=== PATIENT | female | born 1970 | race Caucasian/White ===

== ENCOUNTER → 2016-12-29 | Outpatient (CLI) | payer OTHER ==
--- NOTE | 2016-12-29 10:22 | REP ---
RIGHT UPPER QUADRANT SONOGRAPHY: HISTORY: Hepatitis C. No comparison imaging. FINDINGS: Scanning through right upper quadrant of the abdomen demonstrates a 1.6 cm mobile shadowing gallstone in the gallbladder. There are foci of increased echogenicity in the gallbladder wall, which produce comet-tail artifact consistent with focal adenomyomatosis. No wall thickening or pericholecystic fluid is seen. Common bile duct is normal measuring 0.4 cm in greatest diameter. There is no evidence of ascites or abnormal venous collateral flow. There are two small hyperechoic nodules anteriorly in the left lobe of the liver. These measure 0.9 x 0.4 x 0.4 cm and 1.0 x 0.6 x 1.2 cm. They are compatible with benign hemangiomata. No other focal liver lesion is seen. No pancreatic abnormality is seen. No ascites or right renal abnormality is seen. Right kidney measures 9.7 x 4.9 x 3.1 cm. IMPRESSION: Two small hypoechoic nodules in the left lobe of the liver. Most compatible with hemangiomata. The largest of these measures 1.2 cm in greatest diameter. Cholelithiasis. Signed by Vargas Henriquez MD 12/29/2016 02:54 P
[2016-12-29 10:31] LABS: ALBUMIN 4.2 GM/DL (3.2-5.2); ALKALINE PHOSPHATASE 52 U/L (45-117); ALT/SGPT 28 U/L (12-78); AST/SGOT 45 U/L (15-37); BILIRUBIN,DIRECT < 0.1 MG/DL (0.0-0.2); BILIRUBIN,TOTAL 0.3 MG/DL (0.2-1.0); TOTAL PROTEIN 8.4 GM/DL (6.4-8.2)
[2016-12-31 14:26] LABS: HEPATITIS C QUANTITATION 2599740 IU/mL (.)
[2017-01-01 10:15] LABS: ALT 24 IU/L (0-40); GGT 58 IU/L (0-60); HAPTOGLOBIN 137 mg/dL (34-200); NECROINFLAM SCORE 0.07 (0.00-0.17); NECROINFLAMM GRADE A0-No activity (.); TOTAL BILIRUBIN 0.1 mg/dL (0.0-1.2)
== END ==
LOC: M LAB 08:12
PROVIDERS: ATTEND Hospitalist
DX: B18.2 Chronic viral hepatitis C (principal); K76.89 Other specified diseases of liver

== ENCOUNTER → 2017-01-17 | Outpatient (REF) | payer OTHER | LOC: M LAB REF 09:34 | PROVIDERS: ATTEND Physician Assistant | DX: R30.0 Dysuria (principal) ==

== ENCOUNTER → 2017-01-25 | Outpatient (CLI) | payer OTHER ==
--- NOTE | 2017-02-02 08:08 | REPMRS ---
Patient History The patient states she has not had a clinical breast exam in over a year. No known family history of cancer. Digital Woman Screen Mammo: January 25, 2017 - Exam #: [id number] Bilateral CC and MLO view(s) were taken. Technologist: Che Prescott, Technologist Prior study comparison: 2013, digital bilateral screening mammo. FINDINGS: The breast tissue is heterogeneously dense. This may lower the sensitivity of mammography. There is a moderate amount of heterogeneously dense fibroglandular tissue which is fairly symmetric. There is no interval development of dominant mass, architectural distortion, or clustered microcalcification typical of malignancy. There has been no change in the appearance of the mammogram from the prior studies. ASSESSMENT: BI-RADS/ACR category 1 mammogram. Negative. Recommendation Routine screening mammogram of both breasts in 1 year (for women over age 40). This mammogram was interpreted with the aid of an FDA-approved computer-aided dectection system. Electronically Signed By: Bart Henriquez MD 02/02/17 0808
== END ==
LOC: M WHC 14:33
DX: Z12.31 Encounter for screening mammogram for malignant neoplasm of breast (principal)

== ENCOUNTER → 2017-02-11 | Outpatient (REF) | payer OTHER ==
[~2017-02-11] MED LIST: MACR100C3 PO
== END ==
LOC: M LAB REF 16:49
PROVIDERS: ATTEND Physician Assistant
DX: N39.9 Disorder of urinary system, unspecified (principal)

== ENCOUNTER → 2017-02-16 | Outpatient (REF) | payer OTHER | LOC: M SFHCPLAZ 12:05 | PROVIDERS: ATTEND Internal Medicine Infectious Disease | DX: B18.2 Chronic viral hepatitis C (principal) ==

== ENCOUNTER → 2017-02-16 | Day surgery (SDC) | payer OTHER ==
[~2017-02-16] VITALS: Ht 167.6 cm; Wt 56.7 kg
[~2017-02-16] MED LIST changes: +BUPIVACAINE/EPIN 0.25% 30 ML VIAL As Ordered ONE; +LIDOCAINE 2% INJ 100 MG/5 ML SDV (FOR ANES.) As Ordered ONE; +LR 1,000 ML IV ONE; +LR 1,000 ML IV SCH; +MIDAZOLAM INJ 2 MG/2 ML VIAL (J2250) As Ordered ONE; +PROPOFOL 200 MG/20 ML VIAL As Ordered ONE; +fentaNYL 100 MCG/2 ML INJECTION (J3010) As Ordered ONE
[2017-02-16 07:05] LABS: CONTROL LINE UCG INT CTR LINE PRESENT
[2017-02-16 08:45] VITALS: BP 110/57
--- NOTE | 2017-03-01 05:38 | RO ---
DATE OF PROCEDURE: 02/16/2017 PREOPERATIVE DIAGNOSIS: Large inclusion cyst right posterior ear/scalp. POSTOPERATIVE DIAGNOSIS: Large inclusion cyst right posterior ear/scalp. PROCEDURE: Excision of subcutaneous mass posterior to the right ear/scalp. SURGEON: Red Roque MD VIDEO COORDINATOR: ANESTHESIA: Local lidocaine mixed with epinephrine. DESCRIPTION OF PROCEDURE: The patient was brought to the operating room and was given IV sedation. She was prepped and draped in the usual sterile fashion. Local lidocaine mixed with epinephrine was infiltrated into the skin, subcutaneous tissue surrounding this large, what appeared to be an inclusion cyst. However, it was obvious that it was attached to the deep subcutaneous tissue/galea. An elliptical incision was made over the top of this lesion and getting down to the wall of this, once getting onto the wall, this 3 x 2 cm, almost 4 x 2 cm lesion was able to be mobilized off surrounding structures using mostly blunt dissection. Once again, this went down to fascia/galea and once I was able to take this off good hemostasis was achieved with this minimal dissection. There was some minimal oozing from the skin edges that was controlled with electrocautery and the dermis was brought together with #3-0 Vicry. #4-0 Vicryl was used to approximate the skin. Steri-Strips and dry sterile dressing was applied. The patient was awakened from her sedation, brought to the recovery room awake, alert and hemodynamically stable. Sponge and needle counts correct times two.
== END | disposition home or self-care (01) ==
LOC: M SDC 06:14
PROVIDERS: ATTEND Surgery
DX: L72.3 Sebaceous cyst (principal); R56.9 Unspecified convulsions; N95.8 Other specified menopausal and perimenopausal disorders; B18.2 Chronic viral hepatitis C; F17.200 Nicotine dependence, unspecified, uncomplicated; Z86.59 Personal history of other mental and behavioral disorders; Z87.42 Personal history of other diseases of the female genital tract; Z96.641 Presence of right artificial hip joint; Z87.440 Personal history of urinary (tract) infections

== ENCOUNTER → 2017-03-25 | Outpatient (CLI) | payer OTHER ==
[~2017-03-25] MED LIST changes: -BUPIVACAINE/EPIN 0.25% 30 ML VIAL As Ordered ONE; -LIDOCAINE 2% INJ 100 MG/5 ML SDV (FOR ANES.) As Ordered ONE; -LR 1,000 ML IV ONE; -LR 1,000 ML IV SCH; -MACR100C3 PO; +MACR100C43 PO; -MIDAZOLAM INJ 2 MG/2 ML VIAL (J2250) As Ordered ONE; -PROPOFOL 200 MG/20 ML VIAL As Ordered ONE; -fentaNYL 100 MCG/2 ML INJECTION (J3010) As Ordered ONE
[2017-03-25 13:48] LABS: ALBUMIN 4.1 GM/DL (3.2-5.2); ALBUMIN/GLOBULIN RATIO 0.91 (1.00-1.93); ALKALINE PHOSPHATASE 81 U/L (45-117); ALT/SGPT 45 U/L (12-78); AST/SGOT 74 U/L (15-37); BILIRUBIN,DIRECT < 0.1 MG/DL (0.0-0.2); BILIRUBIN,TOTAL 0.4 MG/DL (0.2-1.0); TOTAL PROTEIN 8.6 GM/DL (6.4-8.2)
[2017-03-26 10:59] LABS: HEPATITIS B SURFACE ANTIBODY NEGATIVE (POSITIVE)
== END ==
LOC: M LAB 12:41
PROVIDERS: ATTEND Internal Medicine Infectious Disease
DX: B18.2 Chronic viral hepatitis C (principal)

== ENCOUNTER → 2019-10-03 | Outpatient (CLI) | payer OTHER ==
[2019-10-03 16:53] LABS: FREE T4 0.62 NG/DL (0.76-1.46); THYROID STIMULATING HORMONE 0.881 uIU/ML (0.358-3.740)
== END ==
LOC: M LAB 15:06
PROVIDERS: ATTEND Internal Medicine Gastroenterology
DX: K58.0 Irritable bowel syndrome with diarrhea (principal)

== ENCOUNTER → 2019-12-12 | Outpatient (REF) | payer OTHER ==
[~2019-12-12] MED LIST changes: +ACET-907 PO
[2019-12-13 14:32] LABS: CLOSTRIDIUM DIFFICILE PCR NEGATIVE (NEGATIVE)
== END ==
LOC: M LAB REF 11:48
PROVIDERS: ATTEND Internal Medicine Gastroenterology
DX: K58.0 Irritable bowel syndrome with diarrhea (principal)

== ENCOUNTER → 2020-02-28 | Outpatient (CLI) | payer OTHER ==
[2020-02-28 12:20] LABS: BASO # 0.1 10^3/uL (0.0-0.2); BASO % 0.7 % (0.0-1.0); EOS # 0.1 10^3/uL (0.0-0.5); EOS % 1.2 % (0.0-3.0); HEMATOCRIT 40.3 % (36.0-47.0); HEMOGLOBIN 13.6 g/dl (12.0-15.5); LYMPH # 1.6 10^3/uL (1.5-5.0); LYMPH % 18.3 % (24.0-44.0); MEAN CORPUSCULAR HEMOGLOBIN 32.5 pg (27.0-33.0); MEAN CORPUSCULAR HGB CONC 33.7 g/dl (32.0-36.5); MEAN CORPUSCULAR VOLUME 96.4 fl (80.0-96.0); MONO # 0.6 10^3/uL (0.0-0.8); MONO % 7.1 % (0.0-5.0); NEUTROPHILS # 6.3 10^3/uL (1.5-8.5); NEUTROPHILS % 72.1 % (36.0-66.0); PLATELET COUNT, AUTOMATED 263 10^3/uL (150-450); RED BLOOD COUNT 4.18 10^6/uL (4.00-5.40); WHITE BLOOD COUNT 8.7 10^3/uL (4.0-10.0)
[2020-02-28 12:22] LABS: APPEARANCE, URINE CLOUDY (CLEAR); BACTERIA, URINE AUTO 1+ (NEGATIVE); BILIRUBIN, URINE AUTO NEGATIVE (NEGATIVE); BLOOD, URINE BLOOD 1+ (NEGATIVE); COLOR, URINE YELLOW (YELLOW); GLUCOSE, URINE (UA) AUTO NEGATIVE (NEGATIVE); KETONE, URINE AUTO NEGATIVE (NEGATIVE); LEUKOCYTE ESTERASE, URINE AUTO NEGATIVE (NEGATIVE); NITRITE, URINE AUTO NEGATIVE (NEGATIVE); PROTEIN, URINE AUTO NEGATIVE (NEGATIVE); RBC, URINE AUTO 2 /HPF (0-3); SPECIFIC GRAVITY URINE AUTO 1.017 (1.002-1.035); SQUAMOUS EPITHELIAL CELL UR AU 16 /HPF (0-6); UROBILINOGEN, URINE AUTO 0.2 mg/dL (0.0-2.0); WBC, URINE AUTO 1 /HPF (0-3)
[2020-02-28 12:54] LABS: HEMOGLOBIN A1c 5.3 %
[2020-02-28 13:05] LABS: ALBUMIN 3.7 GM/DL (3.2-5.2); ALT/SGPT 19 U/L (12-78); BILIRUBIN,TOTAL 0.3 MG/DL (0.2-1.0); BLOOD UREA NITROGEN 16 MG/DL (7-18); CARBON DIOXIDE LEVEL 25 MEQ/L (21-32); CHLORIDE LEVEL 107 MEQ/L (98-107); CHOLESTEROL LEVEL 189 MG/DL (<200); CHOLESTEROL RISK RATIO 3.048 (<5); CREATININE FOR GFR 0.71 MG/DL (0.55-1.30); FREE T4 0.78 NG/DL (0.76-1.46); GLOMERULAR FILTRATION RATE > 60.0 (>51); GLUCOSE, FASTING 86 MG/DL (70-100); HDL CHOLESTEROL 62 MG/DL (>40); LDL CHOLESTEROL 69 MG/DL (<100); NON-HDL-C 127 MG/DL; POTASSIUM SERUM 4.5 MEQ/L (3.5-5.1); SODIUM LEVEL 140 MEQ/L (136-145); TOTAL 25(OH) VITAMIN D 21.8 NG/ML (30.0-100.0); TOTAL PROTEIN 7.6 GM/DL (6.4-8.2); TRIGLYCERIDES LEVEL 290 MG/DL (<150)
== END ==
LOC: M LAB 11:12
PROVIDERS: ATTEND Nurse Practitioner Family
DX: D22.60 Melanocytic nevi of unspecified upper limb, including shoulder (principal); R22.1 Localized swelling, mass and lump, neck; Z13.9 Encounter for screening, unspecified; F17.200 Nicotine dependence, unspecified, uncomplicated

== ENCOUNTER → 2020-04-09 | Outpatient (REF) | payer OTHER ==
[2020-04-09 19:39] LABS: APPEARANCE, URINE TURBID (CLEAR); BACTERIA, URINE AUTO NEGATIVE (NEGATIVE); BILIRUBIN, URINE AUTO NEGATIVE (NEGATIVE); BLOOD, URINE BLOOD 1+ (NEGATIVE); COLOR, URINE AMBER (YELLOW); GLUCOSE, URINE (UA) AUTO NEGATIVE (NEGATIVE); KETONE, URINE AUTO NEGATIVE (NEGATIVE); LEUKOCYTE ESTERASE, URINE AUTO NEGATIVE (NEGATIVE); MUCUS, URINE SMALL (NEGATIVE); NITRITE, URINE AUTO NEGATIVE (NEGATIVE); PROTEIN, URINE AUTO NEGATIVE (NEGATIVE); RBC, URINE AUTO 0 /HPF (0-3); SPECIFIC GRAVITY URINE AUTO 1.017 (1.002-1.035); SQUAMOUS EPITHELIAL CELL UR AU 4 /HPF (0-6); UROBILINOGEN, URINE AUTO 0.2 mg/dL (0.0-2.0); WBC, URINE AUTO 5 /HPF (0-3)
== END ==
LOC: M LAB REF 17:15
PROVIDERS: ATTEND Nurse Practitioner Family
DX: N39.0 Urinary tract infection, site not specified (principal)

== ENCOUNTER → 2020-04-15 | Outpatient (CLI) | payer OTHER ==
--- NOTE | 2020-06-07 13:42 | REP ---
THYROID ULTRASOUND Report is delayed due to a malware attack on this facility. THYROID RIGHT LOBE: There is a solid mass at the mid pole of the right thyroid lobe extending into both upper and lower poles measuring 5.5 x 3.5 x 2.9 cm. Including this mass, the right lobe is enlarged measuring 6.0 x 3.8 x 3.2 cm. THYROID LEFT LOBE: Normal in size measuring 3.9 x 0.9 x 0.8 cm. There is a tiny 0.3 x 0.2 mm heterogeneous nodule at the upper pole of the left lobe. The left lobe is otherwise homogeneous. This is likely a tiny cystadenoma. There is no hyperemia in either the right or the left lobes of the thyroid. IMPRESSION: There is a large 5.5 cm mass in the thyroid right lobe. I would recommend ultrasound-guided biopsy of this mass. Additionally, radionuclide thyroid ultrasound might be considered for further evaluation. MTDD
== END ==
LOC: M WHC 07:38
PROVIDERS: ATTEND Nurse Practitioner Family
DX: E04.1 Nontoxic single thyroid nodule (principal)

== ENCOUNTER → 2020-05-23 | Outpatient (CLI) | payer OTHER | LOC: M LABSMTC 12:23 | PROVIDERS: ATTEND Anesthesiology | DX: Z01.812 Encounter for preprocedural laboratory examination (principal); Z20.828 Contact with and (suspected) exposure to other viral communicable diseases | CPT/HCPCS: C9803; U0003 ==

== ENCOUNTER 2020-05-28 13:25 | Day surgery (SDC) | payer OTHER ==
[~2020-05-28] VITALS: Ht 167.6 cm; Wt 60.4 kg
[~2020-05-28 13:25] MED LIST changes: +NS 1,000 ML IV ONE
[2020-05-28] MEDS ORDERED: LIDOCAINE 2% 100MG/5ML SDV (FOR ANES.) As Ordered ONE (15:02)
[2020-05-28] MEDS ORDERED: propofoL 200 MG/20 ML VIAL As Ordered ONE ×2 (15:02→15:17)
[2020-05-28 15:45] VITALS: BP 141/88
--- NOTE | 2020-05-29 11:39 | ROOR ---
Patient Name: Yodit Chanel Procedure Date: 05/28/2020 3:00 PM Date of : 1970 Age: 50 Room: [facility] Gender: Female Note Status: Finalized Procedure: Colonoscopy Indications: Change in bowel habits, Diarrhea Providers: Cliff ALBRIGHT MD Referring MD: Josias GUERRERO MD Requesting Provider: Medicines: Monitored Anesthesia Care Complications: No immediate complications. Procedure: Pre-Anesthesia Assessment: - The heart rate, respiratory rate, oxygen saturations, blood pressure, adequacy of pulmonary ventilation, and response to care were monitored throughout the procedure. The Colonoscope was introduced through the anus and advanced to 10 cm into the ileum. The colonoscopy was performed without difficulty. The patient tolerated the procedure well. The quality of the bowel preparation was good. Findings: The perianal and digital rectal examinations were normal. Four sessile polyps were found in the descending colon and splenic flexure. The polyps were 4 to 5 mm in size. These polyps were removed with a cold snare. Resection and retrieval were complete. Small Internal Hemorrhoids. The exam was otherwise without abnormality on direct and retroflexion views. Biopsies for histology were taken with a cold forceps from the entire colon for evaluation of microscopic colitis. The terminal ileum appeared normal. Impression: - The terminal ileum appeared normal. - Four 4 to 5 mm polyps in the descending colon and at the splenic flexure, removed with a cold snare. Resected and retrieved. - Small Internal Hemorrhoids. - The colon was otherwise normal on direct and retroflexion views. - Biopsies were taken with a cold forceps from the entire colon for evaluation of microscopic colitis. Recommendation: - Telephone endoscopist for pathology results in 2 weeks. - Repeat colonoscopy in 3 - 5 years for surveillance. Cliff Albright MD Cliff ALBRIGHT MD 05/28/2020 3:28:45 PM Electronically signed by Cliff ALBRIGHT MD Number of Addenda: 0 Note Initiated On: 05/28/2020 3:00 PM Estimated Blood Loss: Estimated blood loss: none.
== END 2020-05-28 15:57 | disposition home or self-care (01) ==
LOC: M OPP 13:25
PROVIDERS: ATTEND Internal Medicine Gastroenterology
DX: D12.3 Benign neoplasm of transverse colon (principal); D12.4 Benign neoplasm of descending colon; K64.8 Other hemorrhoids; R19.4 Change in bowel habit; R19.7 Diarrhea, unspecified; F17.210 Nicotine dependence, cigarettes, uncomplicated; Z86.19 Personal history of other infectious and parasitic diseases

== ENCOUNTER → 2020-06-03 | Outpatient (REF) | payer OTHER ==
[~2020-06-03] MED LIST changes: -NS 1,000 ML IV ONE
== END ==
LOC: M LAB REF 19:01
PROVIDERS: ATTEND Internal Medicine Endocrinology, Diabetes & Metabolism
DX: E04.1 Nontoxic single thyroid nodule (principal)

== ENCOUNTER 2020-10-01 22:57 | Emergency (ER) | payer OTHER ==
[~2020-10-01] VITALS: Ht 167.6 cm; Wt 65.9 kg
--- OUTSIDE RECORDS SUMMARY | 2020-10-01 23:04 | CCD ---
Author Author [facility] Organization [facility] Address Unknown Phone Unavailable Care Team Providers Care Entry Level Business Analyst Name Role Phone Alber, A Pamela MARINE STEWARD Unavailable Unavailable Alber, A Pamela MARINE STEWARD Unavailable Unavailable Alber, A Pamela MARINE STEWARD Unavailable Unavailable Alber, A Pamela MARINE STEWARD Unavailable Unavailable Friendship, A Pamela MARINE STEWARD Unavailable Unavailable Friendship, A Pamela MARINE STEWARD Unavailable Unavailable Friendship, A Pamela MARINE STEWARD Unavailable Unavailable Alber, A Pamela MARINE STEWARD Unavailable Unavailable Alber, A Pamela MARINE STEWARD Unavailable Unavailable Alber, A Pamela MARINE STEWARD Unavailable Unavailable Alber, A Pamela MARINE STEWARD Unavailable Unavailable Friendship, A Pamela MARINE STEWARD Unavailable Unavailable Alber, A Pamela MARINE STEWARD Unavailable Unavailable Alber, A Pamela MARINE STEWARD Unavailable Unavailable Alber, A Pamela MARINE STEWARD Unavailable Unavailable Alber, A Pamela MARINE STEWARD Unavailable Unavailable Alber, A Pamela MARINE STEWARD Unavailable Unavailable Alber, A Pamela MARINE STEWARD Unavailable Unavailable Alber, A Pamela MARINE STEWARD Unavailable Unavailable Alber, A Pamela MARINE STEWARD Unavailable Unavailable Alber, A Pmaela MARINE STEWARD Unavailable Unavailable Alber, A Pamela MARINE STEWARD Unavailable Unavailable Alber, A Pamela MARINE STEWARD Unavailable Unavailable Alber, A Pamela MARINE STEWARD Unavailable Unavailable Alber, A Pamela MARINE STEWARD Unavailable Unavailable Alber, A Pamela MARINE STEWARD Unavailable Unavailable Alber, A Pamela MARINE STEWARD Unavailable Unavailable Alber, A Pamela MARINE STEWARD Unavailable Unavailable Alber, A Pamela MARINE STEWARD Unavailable Unavailable Alber, A Pamela MARINE STEWARD Unavailable Unavailable Alber, A Pamela MARINE STEWARD Unavailable Unavailable Friendship, A Pamela MARINE STEWARD Unavailable Unavailable Friendship, A Pamela MARINE STEWARD Unavailable Unavailable Friendship, A Pamela MARINE STEWARD Unavailable Unavailable Friendship, A Pamela MARINE STEWARD Unavailable Unavailable Friendship, A Pamela MARINE STEWARD Unavailable Unavailable Friendship, A Pamela MARINE STEWARD Unavailable Unavailable Friendship, A Pamela MARINE STEWARD Unavailable Unavailable Friendship, A Pamela MARINE STEWARD Unavailable Unavailable Friendship, A Pamela MARINE STEWARD Unavailable Unavailable Friendship, A Pamela MARINE STEWARD Unavailable Unavailable Friendship, A Pamela MARINE STEWARD Unavailable Unavailable Friendship, A Pamela MARINE STEWARD Unavailable Unavailable Friendship, A Pamela MARINE STEWARD Unavailable Unavailable Friendship, A Pamela MARINE STEWARD Unavailable Unavailable Friendship, A Pamela MARINE STEWARD Unavailable Unavailable Friendship, A Pamela MARINE STEWARD Unavailable Unavailable Friendship, A Pamela MARINE STEWARD Unavailable Unavailable Friendship, A Pamela MARINE STEWARD Unavailable Unavailable Friendship, A Pamela MARINE STEWARD Unavailable Unavailable Friendship, A Pamela MARINE STEWARD Unavailable Unavailable Friendship, A Pamela MARINE STEWARD Unavailable Unavailable Friendship, A Pamela MARINE STEWARD Unavailable Unavailable Friendship, A Pamela MARINE STEWARD Unavailable Unavailable Fish, Audrey Galicia MD Unavailable Unavailable Fish, Audrey Galicia MD Unavailable Unavailable Salinas, Audrey Galicia MD Unavailable Unavailable Salinas, Audrey Galicia MD Unavailable Unavailable Audrey Niño MD Unavailable Unavailable Audrey Niño MD Unavailable Unavailable Audrey Niño MD Unavailable Unavailable Salinas, Audrey Galicia MD Unavailable Unavailable Salinas, Audrey Galicia MD Unavailable Unavailable Audrey Niño MD Unavailable Unavailable Audrey Niño MD Unavailable Unavailable Audrey Niño MD Unavailable Unavailable Audrey Niño MD Unavailable Unavailable Audrey Niño MD Unavailable Unavailable Audrey Niño MD Unavailable Unavailable Audrey Niño MD Unavailable Unavailable FishAudrey MD Unavailable Unavailable FishAudrey MD Unavailable Unavailable Audrey Niño MD Unavailable Unavailable Audrey Niño MD Unavailable Unavailable Audrey Niño MD Unavailable Unavailable Audrey Niño MD Unavailable Unavailable Audrey Niño MD Unavailable Unavailable Audrey Niño MD Unavailable Unavailable Audrey Niño MD Unavailable Unavailable Audrey Niño MD Unavailable Unavailable Audrey Niño MD Unavailable Unavailable Audrey Niño MD Unavailable Unavailable Audrey Niño MD Unavailable Unavailable Audrey Niño MD Unavailable Unavailable Audrey Niño MD Unavailable Unavailable FishAudrey MD Unavailable Unavailable FishAudrey MD Unavailable Unavailable Fish, B Frida ESPINOZA Unavailable Unavailable Fish, B Frida ESPINOZA Unavailable Unavailable Fish, B Frida ESPINOZA Unavailable Unavailable Fish, B Frida ESPINOZA Unavailable Unavailable Fish, B Frida ESPINOZA Unavailable Unavailable Fish, B Frida ESPINOZA Unavailable Unavailable Fish, B Frida ESPINOZA Unavailable Unavailable Fish, B Frida ESPINOZA Unavailable Unavailable Fish, B Frida ESPINOZA Unavailable Unavailable Fish, B Frida ESPINOZA Unavailable Unavailable Fish, B Frida ESPINOZA Unavailable Unavailable Fish, B Frida ESPINOZA Unavailable Unavailable Fish, B Frida ESPINOZA Unavailable Unavailable Fish, B Frida ESPINOZA Unavailable Unavailable Fish, B Frida ESPINOZA Unavailable Unavailable Fish, B Frida ESPINOZA Unavailable Unavailable Fish, B Frida ESPINOZA Unavailable Unavailable Fish, B Frida ESPINOZA Unavailable Unavailable Fish, B Frida ESPINOZA Unavailable Unavailable Fish, B Frida ESPINOZA Unavailable Unavailable Fish, B Frida ESPINOZA Unavailable Unavailable Fish, B Frida ESPINOZA Unavailable Unavailable Fish, B Frida ESPINOZA Unavailable Unavailable Fish, B Frida ESPINOZA Unavailable Unavailable Fish, B Frida ESPINOZA Unavailable Unavailable Fish, B Frida ESPINOZA Unavailable Unavailable Fish, B Frida ESPINOZA Unavailable Unavailable Fish, B Frida ESPINOZA Unavailable Unavailable Fish, B Frida ESPINOZA Unavailable Unavailable Fish, B Frida ESPINOZA Unavailable Unavailable Fish, B Frida ESPINOZA Unavailable Unavailable COOK, B IRENE BOAT RIGGER Unavailable Unavailable COOK, B IRENE BOAT RIGGER Unavailable Unavailable COOK, B IRENE BOAT RIGGER Unavailable Unavailable COOK, B IRENE BOAT RIGGER Unavailable Unavailable COOK, B IRENE BOAT RIGGER Unavailable Unavailable COOK, B IRENE BOAT RIGGER Unavailable Unavailable COOK, B IRENE BOAT RIGGER Unavailable Unavailable COOK, B IRENE BOAT RIGGER Unavailable Unavailable COOK, B IRENE BOAT RIGGER Unavailable Unavailable COOK, B IRENE BOAT RIGGER Unavailable Unavailable COOK, B IRENE BOAT RIGGER Unavailable Unavailable COOK, B IRENE BOAT RIGGER Unavailable Unavailable COOK, B IRENE BOAT RIGGER Unavailable Unavailable COOK, B IRENE BOAT RIGGER Unavailable Unavailable COOK, B IRENE BOAT RIGGER Unavailable Unavailable COOK, B IRENE BOAT RIGGER Unavailable Unavailable COOK, B IRENE BOAT RIGGER Unavailable Unavailable COOK, B IRENE BOAT RIGGER Unavailable Unavailable COOK, B IRENE BOAT RIGGER Unavailable Unavailable COOK, B IRENE BOAT RIGGER Unavailable Unavailable COOK, B IRENE BOAT RIGGER Unavailable Unavailable COOK, B IRENE BOAT RIGGER Unavailable Unavailable COOK, B IRENE BOAT RIGGER Unavailable Unavailable COOK, B IRENE BOAT RIGGER Unavailable Unavailable COOK, B IRENE BOAT RIGGER Unavailable Unavailable COOK, B IRENE BOAT RIGGER Unavailable Unavailable COOK, B IRENE BOAT RIGGER Unavailable Unavailable COOK, B IRENE BOAT RIGGER Unavailable Unavailable COOK, B IRENE BOAT RIGGER Unavailable Unavailable COOK, B IRENE BOAT RIGGER Unavailable Unavailable COOK, B IRENE BOAT RIGGER Unavailable Unavailable COOK, B IRENE BOAT RIGGER Unavailable Unavailable COOK, B IRENE BOAT RIGGER Unavailable Unavailable COOK, B IRENE BOAT RIGGER Unavailable Unavailable COOK, B IRENE BOAT RIGGER Unavailable Unavailable COOK, B IRENE BOAT RIGGER Unavailable Unavailable COOK, B IRENE BOAT RIGGER Unavailable Unavailable COOK, B IRENE BOAT RIGGER Unavailable Unavailable COOK, B IRENE BOAT RIGGER Unavailable Unavailable COOK, B IRENE BOAT RIGGER Unavailable Unavailable COOK, B IRENE BOAT RIGGER Unavailable Unavailable COOK, B IRENE BOAT RIGGER Unavailable Unavailable COOK, B IRENE BOAT RIGGER Unavailable Unavailable COOK, B IRENE BOAT RIGGER Unavailable Unavailable COOK, B IRENE BOAT RIGGER Unavailable Unavailable COOK, B IRENE BOAT RIGGER Unavailable Unavailable COOK, B IRENE BOAT RIGGER Unavailable Unavailable COOK, B IRENE BOAT RIGGER Unavailable Unavailable COOK, B IRENE BOAT RIGGER Unavailable Unavailable COOK, B IRENE BOAT RIGGER Unavailable Unavailable COOK, B IRENE BOAT RIGGER Unavailable Unavailable COOK, B IRENE BOAT RIGGER Unavailable Unavailable COOK, B IRENE BOAT RIGGER Unavailable Unavailable COOK, B IRENE BOAT RIGGER Unavailable Unavailable COOK, B IRENE BOAT RIGGER Unavailable Unavailable COOK, B IRENE BOAT RIGGER Unavailable Unavailable COOK, B IRENE BOAT RIGGER Unavailable Unavailable COOK, B IRENE BOAT RIGGER Unavailable Unavailable COOK, B IRENE BOAT RIGGER Unavailable Unavailable COOK, B IRENE BOAT RIGGER Unavailable Unavailable COOK, B IRENE BOAT RIGGER Unavailable Unavailable COOK, B IRENE BOAT RIGGER Unavailable Unavailable COOK, B IRENE BOAT RIGGER Unavailable Unavailable ROCCO, SACHA ESPINOZA Unavailable Unavailable REINDL, SACHA ESPINOZA Unavailable Unavailable REINDL, SACHA ESPINOZA Unavailable Unavailable REINDL, SACHA ESPINOZA Unavailable Unavailable REINDL, SACHA ESPINOZA Unavailable Unavailable REINDL, SACHA ESPINOZA Unavailable Unavailable REINDL, SACHA ESPINOZA Unavailable Unavailable REINDL, SACHA ESPINOZA Unavailable Unavailable REINDL, SACHA ESPINOZA Unavailable Unavailable REINDL, SACHA ESPINOZA Unavailable Unavailable REINDL, SACHA ESPINOZA Unavailable Unavailable REINDL, SACHA ESPINOZA Unavailable Unavailable REINDL, SACHA ESPINOZA Unavailable Unavailable REINDL, SACHA ESPINOZA Unavailable Unavailable REINDL, SACHA ESPINOZA Unavailable Unavailable REINCLARENCE, SACHA ESPINOZA Unavailable Unavailable REINDL, SACHA ESPINOZA Unavailable Unavailable REINDL, SACHA ESPINOZA Unavailable Unavailable REINCLARENCE, SACHA ESPINOZA Unavailable Unavailable REINDL, SACHA ESPINOZA Unavailable Unavailable REINDL, SACHA ESPINOZA Unavailable Unavailable REINDL, SACHA ESPINOZA Unavailable Unavailable REINDL, SACHA ESPINOZA Unavailable Unavailable REINDL, SACHA ESPINOZA Unavailable Unavailable REINDL, SACHA ESPINOZA Unavailable Unavailable REINDL, SACHA ESPINOZA Unavailable Unavailable REINDL, SACHA MD Unavailable Unavailable REINDL, SACHA MD Unavailable Unavailable REINDL, SACHA MD Unavailable Unavailable REINDL, SACHA MD Unavailable Unavailable REINDL, SACHA MD Unavailable Unavailable REINDL, SACHA MD Unavailable Unavailable REINDL, SACHA MD Unavailable Unavailable REINDL, SACHA MD Unavailable Unavailable REINDL, SACHA MD Unavailable Unavailable REINDL, SACHA MD Unavailable Unavailable REINDL, SACHA MD Unavailable Unavailable REINDL, SACHA MD Unavailable Unavailable REINDL, SACHA MD Unavailable Unavailable REINDL, SACHA MD Unavailable Unavailable REINDL, SACHA MD Unavailable Unavailable REINDL, SACHA MD Unavailable Unavailable Pamela Campo MARINE STEWARD Unavailable Unavailable Re-disclosure Warning The records that you are about to access may contain information from federally-assisted alcohol or drug abuse programs. If such information is present, then the following federally mandated warning applies: This information has been disclosed to you from records protected by federal confidentiality rules (42 CFR part 2). The federal rules prohibit you from making any further disclosure of this information unless further disclosure is expressly permitted by the written consent of the person to whom it pertains or as otherwise permitted by 42 CFR part 2. A general authorization for the release of medical or other information is NOT sufficient for this purpose. The Federal rules restrict any use of the information to criminally investigate or prosecute any alcohol or drug abuse patient.The records that you are about to access may contain highly sensitive health information, the redisclosure of which is protected by Article 27-F of the [facility] Public Health law. If you continue you may have access to information: Regarding HIV / AIDS; Provided by facilities licensed or operated by the [facility] Office of Mental Health; or Provided by the [facility] Office for People With Developmental Disabilities. If such information is present, then the following [facility] mandated warning applies: This information has been disclosed to you from confidential records which are protected by state law. State law prohibits you from making any further disclosure of this information without the specific written consent of the person to whom it pertains, or as otherwise permitted by law. Any unauthorized further disclosure in violation of state law may result in a fine or mcc sentence or both. A general authorization for the release of medical or other information is NOT sufficient authorization for further disc losure. Encounters Encounter Providers Location Date Indications Data Source(s ) Outpatient Referrer: Pamela ISABEL 0 12:00:00 AM EST Encounter for screening mammogram for malignant neoplasm of breast [facility] Encounter for screening mammogram for ma lignant neoplasm of breast Outpatient Referrer: Pamela ISABEL 08/19/2020 12:0 0:00 AM EST [facility] Outpatient Attender: Pamela ISABEL FP 07/04/2020 01:4 2:00 PM EDT [facility] Outpatient Attender: IRENE HSIEH NP Physical Therapy 06/19/2020 1 1:45:00 AM EDT [facility] ([facility]) Outpatient Attender: Pamela ISABEL FP 06/14/2020 04:1 0:00 PM EDT [facility] Outpatient Attender: Pamela ISABEL FP 06/11/2020 07:5 3:01 PM EDT [facility] Outpatient Attender: MAAME ISABEL FP 06/08/2020 09:42:00 A M EDT [facility] Outpatient Attender: MAAME ISABEL FP 06/08/2020 12:02:21 A M EDT [facility] Outpatient Attender: MAAME ISABEL FP 06/07/2020 07:40:01 A M EDT [facility] Outpatient Attender: Frida Niño MD Physical Therapy 06/03 01:00:00 PM EDT [facility] ([facility]) Outpatient Referrer: Pamela ISABEL 05/30/2020 12:0 0:00 AM EDT [facility] Outpatient Attender: Pamela ISABEL FP 05/21/2020 01:3 5:00 PM EDT [facility] Outpatient Attender: MAAME ISABEL FP 05/21/2020 07:27:00 A M EDT [facility] Outpatient Attender: MAAME ISABEL FP 05/20/2020 04:08:01 P M EDT [facility] Outpatient Attender: Pamela ISABEL FP 05/20/2020 12:3 8:00 AM EDT [facility] Outpatient Attender: MAAME ISABEL FP 05/20/2020 12:37:59 A M EDT [facility] Outpatient Attender: Pamela ISABEL FP 05/20/2020 12:3 7:01 AM EDT [facility] Outpatient Attender: MAAME ISABEL FP 05/20/2020 12:36:59 A M EDT [facility] Outpatient Attender: MAAME RETANAP FP 05/10/2020 11:40:00 A M EDT [facility] Outpatient Attender: Pamela RETANAP FP 04/28/2020 11:5 4:01 PM EDT [facility] Outpatient Attender: Pamela RETANAP FP 04/22/2020 03:1 5:00 PM EDT [facility] Outpatient 04/18/2020 12:00:00 AM EDT [facility] Outpatient Attender: MAAME RETANAP FP 04/09/2020 11:03:00 A M EDT [facility] Outpatient Attender: MAAME RETANAP FP 04/08/2020 11:01:01 A M EDT [facility] Outpatient Attender: MAAME RETANAP FP 03/26/2020 12:28:00 P M EDT [facility] Outpatient Attender: Pamela RETANAP FP 03/17/2020 03:1 9:03 PM EDT [facility] Outpatient Attender: MAAME RETANAP FP 03/12/2020 05:58:01 P M EDT [facility] Outpatient Attender: MAAME RETANAP FP 03/12/2020 04:38:05 P M EDT [facility] Outpatient Attender: MAAME RETANAP FP 03/09/2020 09:48:02 P M EDT [facility] Outpatient Attender: Pamela RETANAP FP 03/09/2020 09:4 8:01 PM EDT [facility] Outpatient Attender: MAAME RETANAP FP 03/09/2020 09:47:02 P M EDT [facility] Outpatient Attender: Pamela RETANAP FP 03/09/2020 09:4 7:01 PM EDT [facility] Outpatient Attender: Pamela RETANAP FP 03/01/2020 10:1 1:00 AM EDT [facility] Outpatient Attender: MAAME RETANAP FP 02/27/2020 07:59:31 P M EDT [facility] Outpatient Attender: MAAME RETANAP FP 02/27/2020 05:36:00 P M EDT [facility] Outpatient Attender: MAAME RETANAP FP 02/27/2020 04:39:00 P M EDT [facility] Outpatient Attender: MAAME Campo [facility] 02/27/2020 04:38:00 P M EDT [facility] Outpatient Attender: MAAME Campo [facility] 02/27/2020 12:09:00 P M EDT [facility] Outpatient Attender: MAAME Campo [facility] 02/17/2020 12:18:18 A M EDT [facility] Outpatient Attender: SACHA Carrion/Buck/Jeff/Bindu lópez 09/29/2019 02:15:00 PM EST [facility] ([facility] Outpatient Attender: MARINE STEWARD Alber [facility] 08/07/2019 12:28:01 A M EST [facility] Outpatient Attender: Pamela Campo [facility] 08/07/2019 12:2 6:59 AM [facility] Outpatient Attender: MARINE STEWARD Alber [facility] 08/04/2019 09:01:03 P M [facility] Outpatient Attender: MAAME Alber [facility] 08/04/2019 03:58:00 P M [facility] Outpatient Attender: MAAME Campo [facility] 08/04/2019 03:57:00 P M [facility] Outpatient Attender: MAAME Alber [facility] 08/04/2019 03:56:01 P M [facility] Outpatient Attender: MAAME Campo [facility] 08/03/2019 09:01:04 P M [facility] Outpatient Attender: MAAME Alber [facility] 08/03/2019 05:50:02 P M [facility] Outpatient Attender: MAAME Alber [facility] 08/03/2019 03:59:00 P M [facility] Outpatient Attender: MARINE STEWARD Alber [facility] 08/03/2019 03:58:00 P M [facility] Medications Medication Brand Name Start Date Product Form Dose Route Admi nistrative Instructions Pharmacy Instructions Status Indications Reaction Description Data Source(s) 20 mg 05/29/2020 12:00:00 AM EDT tablet 60 TAKE ONE TABLET BY MOUTH FOUR TIMES A DAY 1/2 HOUR BEFORE MEALS NEEDED FOR ABDOMINAL PAIN/ DIARRHEA/ SPASMS TAKE ONE TABLET BY MOUTH FOUR TIMES A DA Y 1/2 HOUR BEFORE MEALS NEEDED FOR ABDOMINAL PAIN/ DIARRHEA/ SPASMS SOLD: 05/31/2020 [facility] 500 mg 03/12/2020 12:00:00 AM EDT tablet 10 TAKE ONE TABLET BY MOUTH TWICE A DAY FOR 5 DAYS TAKE ONE TABLET BY MOUTH TWICE A DAY FOR 5 DAYS SOLD: 2019 [facility] 420 gram 09/30/2019 12:00:00 AM EST recon soln [address] JEFFERSON PREP USE DIRECTED PER DR. JEFFERSON PREP SOLD: 10/02/2019 [facility] 20 mg 09/29/2019 12:00:00 AM EST tablet 60 TAKE ONE TABLET BY MOUTH FOUR TIMES A DAY NEEDED (1/2 HOUR BEFORE MEAL) FOR ABDOMINAL PAIN/DIARRHEA/SPASM TAKE ONE TABLET BY MOUTH FOUR TIMES A DAY NEEDED (1/2 HOUR BEFORE MEAL) FOR ABDOMINAL PAIN/DIARRHEA/SPASM SOLD: 09/11/2020 [facility] 20 mg 09/29/2019 12:00:00 AM EST tablet 60 TAKE ONE TABLET BY MOUTH FOUR TIMES A DAY NEEDED (1/2 HOUR BEFORE MEAL) FOR ABDOMINAL PAIN/DIARRHEA/SPASM TAKE ONE TABLET BY MOUTH FOUR TIMES A DAY NEEDED (1/2 HOUR BEFORE MEAL) FOR ABDOMINAL PAIN/DIARRHEA/SPASM SOLD: 10/02/2019 [facility] Dicyclomine Hydrochloride 20 MG Oral Tablet Dicyclomine HCL 09/29/2019 12:00:00 AM EST ORAL active [facility] ([facility], ) POLYETHYLENE GLYCOL 3350 105 MG/ML / Pot assium Chloride 0.12615 MEQ/ML / Sodium Bicarbonate 0.017 MEQ/ML / Sodium Chloride 0.0479 MEQ/ML Oral Solution [TriLyte] Trilyte 09/29/2019 12:00:00 AM EST active [facility] ([facility], ) No Active Medications 09/25/2019 12:00:00 AM EST completed [facility] ([facility], ) Insurance Providers Payer name Policy type / Coverage type Policy ID Covered democrat ID Covered democrat's relationship to leger Policy Leger Plan Information [facility] [id number] SP [id number] MEDICAID M [id number] Self [id number] [facility] I [id number] Self [id number] [facility] O [id number] S [id number] Medicaid S [id number] S [id number] Managed Care [facility] Community Plan P [id number] S [id number] Medicaid S [id number] S [id number] Managed Care [facility] Community Plan P [id number] S [id number] Self Pay P UNAVAILABLE S UNAVAILA BLE [facility] [id number] SP [id number] [facility] PLAN [facility] [id number] SP [id number] MEDICAID [id number] SP [id number] SELF PAY UNAVAILABLE UNAVAILA BLE Problems, Conditions, and Diagnoses Code Display Name Description Problem Type Effective Dates Data Source(s) 610041106 Dominant nodule of thyroid Dominant nodule of thyroid Problem 06/03/2020 12:00:00 AM EDT [facility] ([facility]) 793.99 Imaging of thyroid gland abnormal Imaging of thyroid g land abnormal 05/20/2020 04:07:03 PM EDT [facility] V76.12 Encounter for screening mammogram for ma lignant neoplasm of breast Encounter for screening mammogram for malignant neoplasm of breast 03/26/2020 12:27:55 PM EDT [facility] 380.4 Impacted cerumen, bilateral Impacted cerumen, bilatera l 03/12/2020 05:56:43 PM EDT [facility] [id number] Urinary tract infection, site not specif ied Urinary tract infection, site not specified 03/12/2020 05:56:43 PM EDT [facility] V65.8 Person consulting for explanation of exa mination or test findings Person consulting for explanation of examination or test findings 03/12/2020 05:56:43 PM EDT [facility] D22.60 Melanocytic nevi of unspecified upper li mb, including shoulder Melanocytic nevi of unspecified upper limb, including shoulder 02/27/2020 05:34:02 PM EDT [facility] 784.2 Localized swelling, mass and lump, neck Localized swelling, mass and lump, neck 02/27/2020 05:34:02 PM EDT [facility] [id number] Melanocytic nevus of upper limb Melanocytic nevu s of upper limb Problem 02/27/2020 12:00:00 AM EDT [facility] ([facility]) V05.9 Vaccination Vaccination 08/07/2019 12:26:39 AM EST [facility] V04.81 Needs influenza immunization Needs influenza immunizat ion 08/03/2019 05:49:23 PM [facility] 070.51 Hepatits C Hepatits C 08/03/2019 05:49:23 PM ES T [facility] V70.0 Health Screening Health Screening 08/03/2019 05 :49:23 PM [facility] V76.51 Encounter for screening for malignant ne oplasm of colon Encounter for screening for malignant neoplasm of colon 08/03/2019 05:49:2 3 PM [facility] [id number] Nicotine dependence, unspecified, uncomp licated Nicotine dependence, unspecified, uncomplicated 08/03/2019 05:49:23 PM [facility] [id number] Screening colonoscopy Screening colonoscopy Problem 08/03/2019 12:00:00 AM EST [facility] ([facility]) [id number] Nicotine dependence Nicotine dependence Problem 1 10/03/2018 12:00:00 AM EST [facility] ([facility]) [id number] Acute hepatitis C Acute hepatitis C Problem 08/03 12:00:00 AM EST [facility] ([facility]) Z12.31 Encounter for screening mammogram for ma lignant neoplasm of breast Encounter for screening mammogram for malignant neoplasm of breast Diagnosis 08/19/2020 03:15:00 PM [facility] Surgeries/Procedures Procedure Description Date Indications Data Source(s) Fine Needle Aspiration Biopsy Inlcd Ultrasound Guidance 06/03/2020 12:00:00 AM EDT [facility] ([facility]) Results ID Date Data Source [id number] 08/26/2020 04:16:21 PM [facility] MAMMO DIGITAL SCREENING BILATERAL [id number] INAL RESULTInterpreted by:Darshan Sanchez MDBILATERAL DIGITAL MAMMOGRAM WITH COMPUTER-AIDED DETECTIONHISTORY: Screening mammogram. The patient reports no history of breast cancer in a first degree relative and no prior breast procedure.[facility] RISK ASSESSMENT MODEL: - 5 year calculated risk: 0.9% - Average patient 5 year risk: 1.4% - Lifetime risk: 7.1% - Average patient lifetime risk: 10.8%COMPARISON: Outside mammograms (as transmitted, technically limited) dating back to 2010LAST REPORTED CLINICAL BREAST EXAM: 2019TECHNIQUE: Craniocaudal and mediolateral oblique digital mammograms were obtained with tomosynthesis. Computer-aided detection was utilized. Exam was performed on the mobile unit.FINDINGS: The breasts are heterogeneously dense, which may obscure small masses (category C). A questionable asymmetric density is noted in the left anterior breast, approximately 2.5 cm from the nipple. Spot compression images are suggested for the area marked on the screening mammogram. If a mass persists, targeted ultrasound would be indicated. Otherwise, no abnormal mass, calcification or architectural distortion is seen.IMPRESSION:1. Questionable asymmetric density in the left retroareolar breast.2. Further evaluation with spot compression views and possible targeted ultrasound is suggested.BI-RADS - 0 - Incomplete Assessment - Need additional imaging evaluation and/or prior mammograms for comparison. This document has been electronically signed by Darshan Sanchez MD on 08/26/2020 4:14 PM Name Value Range Interpretation Code Description Data Gail rce(s) Supporting Document(s) ID Date Data Source [id number] 06/03/2020 05:26:00 AM EDT [facility] ([facility] ) Name Value Range Interpretation Code Description Data Gail rce(s) Supporting Document(s) Microscopic observation [Identifier] in Unspecified specimen by Non- gynecological cytology method Laboratory test result [facility] ([facility]) SPECIMEN: FNA Right lobe thyr oid Specimen received in Cytolyt SPECIMEN ADEQUACY: Satisfactory for evaluation CATEGORIZATION: Benign DESCRIPTIONS: Small groups of follicular cells noted in a background of scattered lymphocytes, rare macrophages, and blood elements. COMMENTS: 06/04/2020 - 916 Signed KEY VICTOR(ASCP) 06/04/2020 0917 (Prelim) Signed VIOLETA MAST MD 06/04/2020 1035 ID Date Data Source [id number] 05/23/2020 12:00:00 PM EDT [facility] Name Value Range Interpretation Code Description Data Gail rce(s) Supporting Document(s) SARS coronavirus 2 RNA [facility] This lab was ordered by [facility] and reported by [facility]. ID Date Data Source [id number] 04/09/2020 11:34:42 AM EDT [facility] In-House Urine TestsDate/Time Colle cted: April 09, 2020 11:35 AMTest Result Reference Range Normal ValueTanisha Duggan, April 09, 2020 11:35 AMAssessment & Plan Orders:[id number] Vst-Est Level I [CPT-11883] Name Value Range Interpretation Code Description Data Gail rce(s) Supporting Document(s) ID Date Data Source [id number] 04/09/2020 11:20:00 AM EDT [facility] Name Value Range Interpretation Code Description Data Gail rce(s) Supporting Document(s) APPEARANCE U TURBID CLEAR H [facility] SPEC GR URIN 1.017 1.002-1.035 N [facility] UA COLOR VALERY YELLOW N [facility] ID Date Data Source [id number] 04/09/2020 11:20:00 AM EDT [facility] Name Value Range Interpretation Code Description Data Gail rce(s) Supporting Document(s) URINECULTRTN NO GROWTH N [facility] ID Date Data Source [id number] 03/12/2020 04:43:52 PM EDT [facility] Measurements & CalculationsHeight: 66 inches (5 ft. 6 in.) 167.64 cm Weight: 138 pounds 2 oz. 62.79 kg Body Mass Index (BMI): 22.38BMI Interpretation: Healthy WeightBody Surface Area (BSA): 1.71Weight Management Education Done (Nutrition/Physical Activity)Vital SignsTemperature: 97.6F tympanic Pulse Rate: 83 beats/minuteRespiratory Rate: 18 respirations/minuteBlood Pressure: 127/88 left arm sitting automaticO2 Saturation: 97% room airVital Signs performed by: Alireza Hernandez LPN, March 12, 2020 4:55 PMMultiple Vital SignsInitial BP: 138/88Vitals #2BP: 127/88 (primary)Initial Intake Information From: patientRoom #: 11Infectious Disease / Travel ScreeningRecent travel for you or any close contacts? NoHave you had any close contact with anyone diagnosed with or under investigation for COVID-19 (coronavirus)? NoFever? NoRespiratory symptoms: cough, cold, congestion, shortness of breath, difficulty breathing? NoLoss of smell? NoLoss of taste? NoSmoking, Tobacco, Vaping or Smoke Exposure StatusSmoke Status: current every day smokerTobacco Use: YesAdv to Quit: YesDo you vape? NoPassive Smoke Exposure: YesMenstrual HistoryLast Menstrual Period (LMP): 04/05/2019Any possibility of ? NoHealthcare HistorySince your last office visit...Have you been admitted to the hospital? NoHave you been to an emergency room (ER) or urgent care clinic? NoHave you seen another healthcare provider? NoHave you seen a dentist? Yes - [facility] performed by: Alireza Hernandez LPN, March 12, 2020 4:46 PMRate Your HealthIn general, would you say your health is? FairPain AssessmentAre you currently having any pain which... You would like your provider to address? No Affects your activity level? NoDepression Screening - PHQ-2Over the last two weeks, have you... Had little interest or pleasure in doing things? Not at all Been feeling down, depressed, or hopeless? Not at all PHQ-2 Score: 0Anxiety Screening - REHAN-2Over the last two weeks, have you been... Feeling nervous, anxious, or on edge? Not at all Unable to stop or control worrying? Not at all REHAN-2 Score: 0Food InsecurityWithin the past year...Did you worry whether your food would run out before you got money to buy more? NoWas there a time when the food you bought didn't last and you didn't have money to get more? NoPatient Learning & Communication Needs Preferred learning style: by experiencePossible barriers: nonePatient's Language used in visit: YesLanguage: wolof Screening, Brief Intervention, & Referral to Treatment (SBIRT)Pre-Screening Questions How many times have you have 4 or more drinks in a day? 0How many times have you used an illegal drug or used a prescription medication for a non-medical reason? 0Performed by: Alireza Hernandez LPN, March 12, 2020 4:48 PMPatient History Medical History:hep cSurgical History:total hip replacementcyst removal behind earFamily History:mother- lung cancer, lymp hnote, retcal cancerfather- lung and liver cancerbrother-lyphmnote cancerm grandmother-alzheimersm grandfather- heart attackSocial/Personal History: Advised to Quit/Tobacco Education: YesChief Complaintlab results RM 11 History of Present Illness (HPI)50 yr old female PT here today for lab results. Pt denies pain at this time. Pt states she is currently not taking any medications at this time. HPI performed by: Pamela ISABEL, March 12, 2020 5:37 PMTransitions of Care InboundProblem ReviewProblem List was reviewed and/or updated during this visit.Medication Reconciliation & ReviewMedication List was reviewed and/or updated during this visit, including review of any nuuu-vgd-zeqdlxv medications, herbal therapies, and/or supplements.Allergy ReviewAllergy List was reviewed and/or updated during this visit.Adult Preventive CareProvider Calculated and Reviewed all Clinical Protocols for patient today. Screening Tobacco Screening: Smoking Status: current every day smoker (03/12/2020) Tobacco Use: Currently (03/12/2020) Advised to Quit: Yes (03/12/2020)Labs/Meds/Other Counseling-Nutrition and Physical Activity:BMI Interpretation: Healthy Weight (03/12/2020) Counseling: Done (03/12/2020) Physical Activity: Done (03/12/2020)Review of Systems General: Denies loss of appetite, chills, dizziness, fatigue, fever, continued fever, headache, feeling ill, sweats, night sweats, sleep disturbances, weight loss. Eyes: Denies blurring of vision, double vision, irritation, discharge, vision loss, eye pain, eye swelling, droopy eyelid, sensitivity to light, redness, itching. Ears/Nose/Throat: Denies earache, ear discharge, ringing in ears, decreased hearing, nasal congestion, nosebleeds, runny nose, sore throat, hoarseness, difficulty swallowing, dry mouth, tooth pain, bleeding gums, swollen glands. Cardiovascular: Denies chest pain, palpitations, feeling faint, trouble breathing w/exertion, SOB upon lying down, SOB at night, peripheral edema, elevated blood pressure, decreased heart rate. Respiratory: Denies cough, difficulty breathing, shortness of breath, excessive sputum, coughing up blood, wheezing, chest pain. Breast: Denies discoloration, tenderness, breast changes, breast lump, nipple discharge. Gastrointestinal: Denies nausea, vomiting, bleeding, burning, itching, irritation, cramps, diarrhea, constipation. Genitourinary: Denies urinary incontinence, pain with urination, burning with urination, urinary frequency, urinary hesitancy, urinary urgency, urinary urgency at night, incomplete emptying, blood in urine. Musculoskeletal: Denies back pain, joint pain, leg pain, other pain-see comments, joint swelling, body aches, muscle aches, muscle cramps, muscle weakness, stiffness, recent injury. Skin: Denies rash, hives, redness, itching, dryness, nail changes, suspicious lesions, athlete's foot, rash on palms, rash on bottom of feet. Neurologic: Denies muscle impairment, weakness, numbness/tingling, seizures, slurred speech, feeling faint, tremors, vertigo, paralysis on one side, paralysis on both sides. Psychiatric: Denies depression, anxiety, memory loss, mental disturbance, suicidal ideation, homicidal ideation, hallucinations, paranoia, feeling stressed, hearing voices. Endocrine: Denies cold intolerance, heat intolerance, excessive thirst, excessive hunger, excessive urination, weight loss, weight gain. Heme/Lymphatic: Complains of enlarged lymph nodes. cevical lymph nodesPhysical ExamGeneral Appearance: well nourished, well hydrated, no acute distressEyes, External: conjunctivae and lids normal, EOMIRespiratory, Auscultation: clear to auscultation bilaterally; no rales, rhonchi, or wheezesRespiratory, Effort: no intercostal retractions or use of accessory musclesCardiovascular, Auscultation: S1, S2 audible; no murmur, rub, or gallop; RRRPeripheral Circulation: no clubbing, cyanosis, edema, or varicositiesAbdomen: soft, non-tender, no masses, bowel sounds normalGait & Station: normalSkin, Inspection: lump on right neck. Orientation: oriented to time, place, and personMood & Affect: no depression, anxiety, or agitationJudgment & Insight: intactCare Management Plan Transitions of CareInboundRate Your HealthIn general, would you say your health is? FairAssessment & Plan Problems:Added: Person consulting for explanation of examination or test findings (ICD-V65.8) (ICD10- Z71.2) Assessment: Instructions: We have reviewed your lab results with you today. your lab results are unremarkable except for +bacteria and +1 blood in urine. we will treat for UTI . please try to maintain good nutrition, adequate rest and adequate intake of water daily.Urinary tract infection, site not specified (DZI08-T44.0) Assessment: Will treat for UTI and recheck urine with culture in 6 weeks. will refer to urologist if still positive for blood in urine. Instructions: We have sent a prescription to your pharmacy today. Please take medication as prescribed. Please report any major side effects.Impacted cerumen, bilateral (ICD-380.4) (TEG77-O66.23) Assessment: Instructions: Ear wax removed today via warm water flush. Please try to keep ear canal clean and dry. Please avoid the use of qtips. May use washcloth in shower daily, then dry with towels.Assessed:Nicotine dependence, unspecified, uncomplicated (YHA49-F54.200) Assessment: Instructions: Cigarette smoking is linked to many health concerns. Please try to cut back on your smoking with a goal to quit smoking. Please let us know if you need additional assistance in doing so.Patient Instructions/Care Plan: Person consulting for explanation of examination or test findings: We have reviewed your lab results with you today. your lab results are unremarkable except for +bacteria and +1 blood in urine. we will treat for UTI . please try to maintain good nutrition, adequate rest and adequate intake of water daily.Urinary tract infection- site not specified: We have sent a prescription to your pharmacy today. Please take medication as prescribed. Please report any major side effects.Nicotine dependence- unspecified- uncomplicated: Cigarette smoking is linked to many health concerns. Please try to cut back on your smoking with a goal to quit smoking. Please let us know if you need additional assistance in doing so.Impacted cerumen- bilateral: Ear wax removed today via warm water flush. Please try to keep ear canal clean and dry. Please avoid the use of qtips. May use washcloth in shower daily, then dry with towels. Plan developed in collaboration with patient and/or familyMedications:CIPRO 500 MG ORAL TABLETMedication Changes:New Prescription:CIPRO 500 MG ORAL TABLET-take one tablet by mouth twice daily x 5 days Qty: 10[Tablet] Refills: 0 Method: ElectronicAllergies:No Known Allergies (updated 02/27/2020) Orders:Ear Wax Removal [CPT-53190] URINALYSIS [CPT-06390] Urine Culture & Sensitivity [CPT-76894] Adult - Ofc Vst, EST, Level IV [CPT-19381] Follow-Up Return to clinic: 3 months for follow up Clinical Visit Summary CompletedMedications:CIPRO 500 MG ORAL TABLET (CIPROFLOXACIN HCL) take one tablet by mouth twice daily x 5 days #10[Tablet] x 0 Route:ORAL Entered and Authorized by: Pamela ISABEL Method used: Electronically to [facility]* (retail) [address] [place] [address] Fax: Note to Pharmacy: Route: ORAL; Indications: URINARY TRACT INFECTION, SITE NOT SPECIFIED RxID: [id number] signed by Pamela ISABEL on 03/17/2020 at 3:18 PM Name Value Range Interpretation Code Description Data Gail rce(s) Supporting Document(s) ID Date Data Source [id number] 02/28/2020 11:37:00 AM EDT [facility] Name Value Range Interpretation Code Description Data Gail rce(s) Supporting Document(s) APPEARANCE U CLOUDY CLEAR H [facility] SPEC GR URIN 1.017 1.002-1.035 N [facility] UA COLOR YELLOW YELLOW N [facility] ID Date Data Source [id number] 02/28/2020 11:33:00 AM EDT [facility] Name Value Range Interpretation Code Description Data Gail rce(s) Supporting Document(s) HCT 40.3 % 36.0-47.0 N [facility] HGB 13.6 g/dL 12.0-15.5 N [facility] MCH 33.7 G/DL pg 32.0-36.5 N [facility] MCHC 32.5 PG % 27.0-33.0 N [facility] PLATELETS 263 10 10*3/mm3 150-450 N [facility] RBC 4.18 10 10*6/mm3 4.00-5.40 [facility] RDW 16.6 % 11.5-14.5 H [facility] WBC TOTAL 8.7 4.0-10.0 N [facility] ID Date Data Source [id number] 02/28/2020 11:33:00 AM EDT [facility] Name Value Range Interpretation Code Description Data Gail rce(s) Supporting Document(s) HGBA1C 5.3 % N [facility] ID Date Data Source [id number] 02/28/2020 11:33:00 AM EDT [facility] Name Value Range Interpretation Code Description Data Gail rce(s) Supporting Document(s) BG FASTING 86 mg/dL 70-100 N [facility] T4, FREE 0.78 ng/dL 0.76-1.46 N [facility] TSH 1.700 microintl units/mL 0.358-3.740 N [facility] VIT D25 TOT 21.8 ng/mL 30.0-100.0 L [facility] ID Date Data Source [id number] 02/27/2020 04:22:27 PM EDT [facility] Measurements & CalculationsHeight: 66 inches (5 ft. 6 in.) 167.64 cm Weight: 14 pounds 8 oz. 6.59 kg Body Mass Index (BMI): 2.35BMI Interpretation: UnderweightBody Surface Area (BSA): 0.66Weight Management Education Done (Nutrition/Physical Activity)Vital SignsTemperature: 98.9FPulse Rate: 93 beats/minuteRespiratory Rate: 15 respirations/minuteBlood Pressure: 134/87 O2 Saturation: 94% Vital Signs performed by: Briseyda Arevalo LPN, February 27, 2020 4:34 PMVital Signs performed by: Briseyda Arevalo LPN, February 27, 2020 4:34 PMInitial Intake Information From: patientRoom #: 11Infectious Disease / Travel ScreeningRecent travel for you or any close contacts? NoHave you had any close contact with anyone diagnosed with or under investigation for COVID-19 (coronavirus)? NoFever? NoRespiratory symptoms: cough, cold, congestion, shortness of breath, difficulty breathing? NoLoss of smell? NoLoss of taste? NoSmoking, Tobacco, Vaping or Smoke Exposure StatusSmoke Status: current every day smokerTobacco Use: YesAdv to Quit: YesDo you vape? NoPassive Smoke Exposure: YesPassive Smoke Exposure comments: Friend Menstrual HistoryAny possibility of ? NoComments: irregular periods Healthcare HistorySince your last office visit...Have you been admitted to the hospital? NoHave you been to an emergency room (ER) or urgent care clinic? NoHave you seen another healthcare provider? NoHave you seen a dentist? Yes - [facility] performed by: Briseyda Arevalo LPN, February 27, 2020 4:29 PMRate Your HealthIn general, would you say your health is? GoodPain AssessmentAre you currently having any pain which... You would like your provider to address? No Affects your activity level? NoDepression Screening - PHQ-2Over the last two weeks, have you... Had little interest or pleasure in doing things? Not at all Been feeling down, depressed, or hopeless? Not at all PHQ-2 Score: 0Anxiety Screening - REHAN-2Over the last two weeks, have you been... Feeling nervous, anxious, or on edge? Not at all Unable to stop or control worrying? Not at all REHAN-2 Score: 0Food InsecurityWithin the past year...Did you worry whether your food would run out before you got money to buy more? NoWas there a time when the food you bought didn't last and you didn't have money to get more? NoScreening, Brief Intervention, & Referral to Treatment (SBIRT)Pre-Screening Questions How many times have you have 4 or more drinks in a day? 0How many times have you used an illegal drug or used a prescription medication for a non-medical reason? 0P erformed by: Briseyda Arevalo LPN, February 27, 2020 4:34 PMPatient History Medical History:hep cSurgical History:total hip replacementcyst removal behind earFamily History:mother- lung cancer, lymphnote, retcal cancerfather- lung and liver cancerbrother-lyphmnote cancerm grandmother-alzheimersm grandfather- heart attackSocial/Personal History: Advised to Quit/Tobacco Education: YesChief ComplaintPt has a "growth " on right arm and lump on right side of neck Room 11History of Present Illness (HPI)49 YO here for growth on right upper arm/ and lump on right of neck. Pt states lump on neck have been present for over 6 months.Pt states discomfort but not painful. HPI performed by: Pamela Campo MARINE STEWARD, February 27, 2020 4:59 PMTransitions of Care InboundProblem ReviewProblem List was reviewed and/or updated during this visit.Medication Reconciliation & ReviewMedication List was reviewed and/or updated during this visit, including review of any eosk-trb-ppfubby medications, herbal therapies, and/or supplements. Patient has no known medications.Allergy ReviewAllergy List was reviewed and/or updated during this visit. Patient has no known allergies.Adult Preventive CareProvider Calculated and Reviewed all Clinical Protocols for patient today. Screening Tobacco Screening: Smoking Status: current every day smoker (02/27/2020) Tobacco Use: Currently (02/27/2020) Advised to Quit: Yes (02/27/2020)Labs/Meds/Other Counseling-Nutrition and Physical Activity:BMI Interpretation: Underweight (02/27/2020) Counseling: Done (02/27/2020) Physical Activity: Done (02/27/2020)Cancer Screening Mammogram Reviewed: Previous Comments: last mammo 1 1/2 year ago. women to women. normal reading. 08/03/2019 (08/03/2019)Today's Comments: Having done on March 19 with [facility] site Pap Smear/HPV TestingReviewed: Previous Comments: 3 years since last pap 08/03/2019 (08/03/2019)Today's Comments: would like to be schuduled here ColonoscopyReviewed:Previous Comments: pt would like to have colonoscopy se t up. 07/21/2019 (08/03/2019)Today's Comments: wiaiting to have reschduled due to Covid Review of Systems General: Denies loss of appetite, chills, dizziness, fatigue, fever, continued fever, headache, feeling ill, sweats, night sweats, sleep disturbances, weight loss. Eyes: Denies blurring of vision, double vision, irritation, discharge, vision loss, eye pain, eye swelling, droopy eyelid, sensitivity to light, redness, itching. Ears/Nose/Throat: Denies earache, ear discharge, ringing in ears, decreased hearing, nasal congestion, nosebleeds, runny nose, sore throat, hoarseness, difficulty swallowing, dry mouth, tooth pain, bleeding gums, swollen glands. Cardiovascular: Denies chest pain, palpitations, feeling faint, trouble breathing w/exertion, SOB upon lying down, SOB at night, peripheral edema, elevated blood pressure, decreased heart rate. Respiratory: Denies cough, difficulty breathing, shortness of breath, excessive sputum, coughing up blood, wheezing, chest pain. Breast: Denies discoloration, tenderness, breast changes, breast lump, nipple discharge. Gastrointestinal: Denies nausea, vomiting, bleeding, burning, itching, irritation, cramps, diarrhea, constipation. Genitourinary: Denies urinary incontinence, pain with urination, burning with urination, urinary frequency, urinary hesitancy, urinary urgency, urinary urgency at night, incomplete emptying, blood in urine. Musculoskeletal: Denies back pain, joint pain, leg pain, other pain-see comments, joint swelling, body aches, muscle aches, muscle cramps, muscle weakness, stiffness, recent injury. Skin: Complains of itching. Denies rash, hives, redness, dryness, nail changes, suspicious lesions, athlete's foot, rash on palms, rash on bottom of feet. wart/ mole to right upper arm. lumpt to right neckNeurologic: Denies muscle impairment, weakness, numbness/tingling, seizures, slurred speech, feeling faint, tremors, vertigo, paralysis on one side, paralysis on both sides. Psychiatric: Denies depression, anxiety, memory loss, mental disturbance, suicidal ideation, homicidal ideation, hallucinations, paranoia, feeling stressed, hearing voices. Endocrine: Denies cold intolerance, heat intolerance, excessive thirst, exces sive hunger, excessive urination, weight loss, weight gain. Physical ExamGeneral Appearance: well nourished, well hydrated, no acute distressEyes, External: conjunctivae and lids normal, EOMIRespiratory, Auscultation: clear to auscultation bilaterally; no rales, rhonchi, or wheezesRespiratory, Effort: no intercostal retractions or use of accessory musclesCardiovascular, Auscultation: S1, S2 audible; no murmur, rub, or gallop; RRRPeripheral Circulation: no clubbing, cyanosis, edema, or varicositiesAbdomen: soft, non-tender, no masses, bowel sounds normalGait & Station: normalSkin, Inspection: lump on right neck. Orientation: oriented to time, place, and personMood & Affect: no depression, anxiety, or agitationJudgment & Insight: intactCare Management Plan Transitions of CareInboundRate Your HealthIn general, would you say your health is? GoodAssessment & Plan Problems:Added: Localized swelling, mass and lump, neck (ICD-784.2) (HTK90-F55.1) Assessment: localized swelling to right neck. c/o increased discomfort. Present for over [address] scan for eval and treatneed to r/o mass / tumor Instructions: We have ordered a CT scan of your neck of your neck. We will contact you to set this upMelanocytic nevi of unspecified upper limb, including shoulder (ICD-216.6) (PHI43-V55.60) Assessment: Instructions: We have made a referral for you today. We will contact you to set this up.Assessed:Health Screening (ICD-V70.0) (KCB43-X95.9) Assessment: Instructions: Fasting labs done for you today. Please have labs done prior to your next visit. Please fast for 8-10 hours prior.Nicotine dependence, unspecified, uncomplicated (VTU94-E98.200) Assessment: Patient states smoking about one pack cigarettes daily.Patient Instructions/Care Plan: Localized swelling- mass and lump- neck: We have ordered a CT scan of your neck of your neck. We will contact you to set this upMelanocytic nevi of unspecified upper limb- including shoulder: We have made a referral for you today. We will contact you to set this up.Health Screening: Fasting labs done for you today. Please have labs done prior to your next visit. Please fast for 8-10 hours prior. Plan developed in collaboration with patient and/or familyAllergies:No Known Allergies (updated 02/27/2020) Orders:COMP METABOLIC PANEL [CPT-74903] CBC W/DIFF [CPT-31988] HgBA1c [CPT-76472] LIPID PANEL [CPT- 87663] TSH [CPT-81272] T-4 free [CPT-70354] Vitamin D 250H Unspecified [CPT- 59954] URINALYSIS [CPT-33101] Dermatology Consult [CPT-41278] CT SOFT TISSUE NECK W/O &W/CONTRAST MATERIAL [CPT-45303] Adult - Ofc Vst, EST, Level IV [CPT- 31625] Follow-Up Return to clinic: 2-3 weeks for fillow up Clinical Visit Summary Completed Name Value Range Interpretation Code Description Data Gail rce(s) Supporting Document(s) ID Date Data Source [id number] 08/03/2019 04:20:17 PM [facility] Measurements & CalculationsHeight: 66 inches (5 ft. 6 in.) 167.64 cm Weight: 135 pounds 2 oz. 61.42 kg Body Mass Index (BMI): 21.89BMI Interpretation: Healthy WeightBody Surface Area (BSA): 1.69Vital SignsTemperature: 98.1FPulse Rate: 88 beats/minuteRespiratory Rate: 16 respirations/minuteBlood Pressure: 124/84 left arm sitting automaticO2 Saturation: 96% room airVital Signs performed by: Ana Lilia Fofana MA, August 03, 2019 4:30 PMVaccines Administered/Entered:Vaccination Group: InfluenzaSeries: 1Vaccination: FLULAVAL QPF>3 YEARS - AdultMfr / Lot# / Exp.Date: ID Biomedical Fabio / [id number] / 03/19/2020Amt. Given / Route / Site: 0.5 mL / IM / Left DeltoidNDC / CVX: [id number] / 150Administered Date: 08/03/2019 17:51VFC Eligibility: Not VFC EligibleVIS Date: 05/04/2019VIS Given / VIS Given On: Yes 08/03/2019Comments: Administered by: Lilian Harrison LPN Initial Intake Information from: patientRoom #: 14Infectious Disease- Travel Have you or your sexual partner travelled outside of the country recently? NoSmoking, Tobacco or Smoke Exposure StatusSmoke Status: current every day smokerTobacco Use: YesAdv to Quit: YesPassive Smoke Exposure: YesMenstrual HistoryLast Menstrual Period (LMP): 04/05/2019Any possibility of ? NoComments: irregular cycles.Healthcare HistorySince your last office visit...Have you been admitted to the hospital? NoHave you been to an emergency room (ER) or urgent care clinic? NoHave you seen another healthcare provider? NoHave you seen a dentist? Yes - sarah dentalIntake performed by: Ana Lilia Fofana MA, August 03, 2019 4:23 PMRate Your HealthIn general, would you say your health is? GoodPain AssessmentAre you currently having any pain which... You would like your provider to address? No Affects your activity level? NoDepression Screening - PHQ-2Over the last two weeks, have you... Had little interest or pleasure in doing things? Not at all Been feeling down, depressed, or hopeless? Not at all PHQ-2 Score: 0Anxiety Screening - REHAN-2Over the last two weeks, have you been... Feeling nervous, anxious, or on edge? Not at all Unable to stop or control worrying? Not at all REHAN-2 Score: 0Infectious Disease- Travel Cont. Any possibility of ? NoPRAPARE Sociodemographic Characteristics Race: White Ethnicity: Not or Preferred Language: EnglishFamily and Home Address: [address] [place] [address] What is your housing situation today? I have housing Are you worried about losing your housing? NoMoney and Resources What is the highest level of school that you have finished? high school graduate Employed? No Are you seeking work? No Insurance: Managed Care - [facility] Community PlanIn the past year, have you or any family members you live with been unable to get any of the following when it was really needed? Denies Insecurity: food, utilities, clothing, child development instructor, phone, legal servicesIn the past year, have you had trouble affording costs associated with health insurance (such as deductibles, co-payments, etc.)? NoSocial and Emotional Health How often do you see or talk to people that you care about and feel close to? More than 5 times a week How stressed are you? A little bitAdditional Optional Domains In the past 3 months, have you spent more than 2 nights in a row in a mcc, fci, intermediate center or juvenile correctional facility? No Has lack of transportation kept you from medical appointments or from getting your medications? NoIn the past year, have you had trouble getting any of the following when it was really needed (check all that apply)?noneIn the past year, have you had trouble paying the costs associated with health care or medicine (such as co-payments, costs for services, prices of medicines)? NoHow confident are you that you can control and manage most of your health problems? Very confident Are you a refugee? No (Country of origin: [facility]) Do you feel physically and emotionally safe where you live? Yes In the past year, have you been afraid of a partner, ex-partner? NoScreening, Brief Intervention, & Referral to Treatment (SBIRT)Pre-Screening Questions How many times have you have 4 or more drinks in a day? 0How many times have you used an illegal drug or used a prescription medication for a non- medical reason? 0Performed by: Ana Lilia Fofana MA, August 03, 2019 4:24 PMPatient History Medical History:hep cSurgical History:total hip replacementcyst removal behind earFamily History:mother- lung cancer, lymphnote, retcal cancerfather- lung and liver cancerbrother-lyphmnote cancerm grandmother- alzheimersm grandfather- heart attackSocial/Personal History: Smoking Status: current every day smokerAdvised to Quit/Tobacco Education: YesChief Co mplaintestablishing careHistory of Present Illness (HPI)49 year old female patient in today to establish care.Pt states was being seen by Dr Still's office but havent been seen in two years. Pt states was been seen by Dr Carroll for treatment of Hep C, Pt states never completed the treatment because her mother had been diagnosed with rectal cancer. Pt states that have been busy taking her mother to different doctors appointments and chemo therapy. Pt would like to be set up for a colonoscopy.Pt would like a flu vaccine today. Pt denies any other concerns at this time.HPI performed by: Pamela RETANAP, August 03, 2019 5:23 PMTransitions of Care InboundProblem ReviewProblem List was reviewed and/or updated during this visit.Medication Reconciliation & ReviewMedication List was reviewed and/or updated during this visit, including review of any mxgp-fma-hhrmiov medications, herbal therapies, and/or supplements. Patient has no known medications.Allergy ReviewAllergy List was reviewed and/or updated during this visit. Patient has no known allergies.Adult Preventive CareProvider Calculated and Reviewed all Clinical Protocols for patient today. Screening Tobacco Screening: Smoking Status: current every day smoker (08/03/2019) Advised to Quit: Yes (08/03/2019)Cancer Screening Mammogram Reviewed: Today's Comments: last mammo 1 1/2 year ago. women to women. normal reading. 08/03/2019Pap Smear/HPV TestingReviewed: Today's Comments: 3 years since last pap 08/03/2019Colonoscopy Today's Comments: pt would like to have colonoscopy set up. 07/21/2019Review of Systems General: Denies loss of appetite, chills, dizziness, fatigue, fever, continued fever, headache, feeling ill, sweats, night sweats, sleep disturbances, weight loss. Eyes: Denies blurring of vision, double vision, irritation, discharge, vision loss, eye pain, eye swelling, droopy eyelid, sensitivity to light, redness, itching. Ears/Nose/Throat: Denies earache, ear discharge, ringing in ears, decreased hearing, nasal congestion, nosebleeds, runny nose, sore throat, hoarseness, difficulty swallowing, dry mouth, tooth pain, bleeding gums, swollen glands. Cardiovascular: Denies chest pain, palpitations, feeling faint, trouble breathing w/exertion, SOB upon lying down, SOB at night, peripheral edema, elevated blood pressure, decreased heart rate. Respiratory: Denies cough, difficulty breathing, shortness of breath, excessive sputum, coughing up blood, wheezing, chest pain. Gastrointestinal: Denies nausea, vomiting, bleeding, burning, itching, irritation, cramps, diarrhea, constipation. Genitourinary: Denies urinary incontinence, pain with urination, burning with urination, urinary frequency, urinary hesitancy, urinary urgency, urinary urgency at night, incomplete emptying, blood in urine. Musculoskeletal: Denies back pain, joint pain, leg pain, other pain-see comments, joint swelling, body aches, muscle aches, muscle cramps, muscle weakness, stiffness, recent injury. Skin: Denies rash, hives, redness, itching, dryness, nail changes, suspicious lesions, athlete's foot, rash on palms, rash on bottom of feet. Neurologic: Denies muscle impairment, weakness, numbness/tingling, seizures, slurred speech, feeli ng faint, tremors, vertigo, paralysis on one side, paralysis on both sides. Psychiatric: Denies depression, anxiety, memory loss, mental disturbance, suicidal ideation, homicidal ideation, hallucinations, paranoia, feeling stressed, hearing voices. Physical ExamGeneral Appearance: well nourished, well hydrated, no acute distressEyes, External: conjunctivae and lids normal, EOMIRespiratory, Auscultation: clear to auscultation bilaterally; no rales, rhonchi, or wheezesRespiratory, Effort: no intercostal retractions or use of accessory musclesCardiovascular, Auscultation: S1, S2 audible; no murmur, rub, or gallop; RRRPeripheral Circulation: no clubbing, cyanosis, edema, or varicositiesAbdomen: soft, non-tender, no masses, bowel sounds normalGait & Station: normalSkin, Inspection: no rashes, lesions, or ulcerationsOrientation: oriented to time, place, and personMood & Affect: no depression, anxiety, or agitationJudgment & Insight: intactCare Management Plan Transitions of CareInboundRate Your HealthIn general, would you say your health is? GoodAssessment & Plan Problems:Added: Vaccination (ICD-V05.9) (ICD10- Z23)Encounter for screening for malignant neoplasm of colon (ICD-V76.51) (ICD10- Z12.11) Assessment: Instructions: We have made a referral for you today. We will contact you to set this upNicotine dependence, unspecified, uncomplicated (BQR22-U92.200) Assessment: Instructions: Cigarette smoking is linked to many health concerns. Please try to quit smoking. Please let us know if you need additional assistance in doing so.Health Screening (ICD-V70.0) (HEQ54-K60.9) A ssessment: Instructions: We have ordered labs for you today. Please have blood work done one -2 weeks prior to your next visit. Please fast for 8-10 hours prior to having labs drawn.Hepatits C (ICD-070.51) (QVQ46-E70.10) Assessment: Instructions: Please call to schedule an appointment with Dr Carroll for completion of your Hepatitis C treatment.Needs influenza immunization (ICD- V04.81) (GGI93-V90.3) Assessment: Instructions: You have had your flu vaccine today.Patient Instructions/Care Plan: Encounter for screening for malignant neoplasm of colon: We have made a referral for you today. We will contact you to set this upNicotine dependence- unspecified- uncomplicated: Cigarette smoking is linked to many health concerns. Please try to quit smoking. Please let us know if you need additional assistance in doing so.Health Screening: We have ordered labs for you today. Please have blood work done one - 2 weeks prior to your next visit. Please fast for 8-10 hours prior to having labs drawn.Hepatits C: Please call to schedule an appointment with Dr Carroll for completion of your Hepatitis C treatment.Needs influenza immunization: You have had your flu vaccine today. Plan developed in collaboration with patient and/or familyAllergies:No Known Allergies (updated 08/03/2019) Orders:Gastroenterology Consult [CPT-57722] COMP METABOLIC PANEL [CPT-30546] CBC W/DIFF [CPT-42574] HgBA1c [CPT-51709] LIPID PANEL [CPT-11041] TSH [CPT-22086] T- 4 free [CPT-04689] Vitamin D 250H Unspecified [CPT-85110] Administration of Influenza Virus Vaccine [CPT-G0008] 17058 - Immo Admin (under 19 yrs), 1st Toxo id [CPT-77494] FluLaval Quadrivalent, preservative free [CPT-15823] Adult - Ofc Vst, NEW, Level III [CPT-01545] Follow-Up Return to clinic: 3-4 weeks for follow up Clinical Visit Summary Completed Name Value Range Interpretation Code Description Data Gail rce(s) Supporting Document(s) Procedure Social History Code Duration Value Status Description Data Source(s ) Smoking 08/19/2020 12:00:00 AM EST Unknown if ever smoked comp leted Unknown if ever smoked [facility] Vital Signs ID Date Data Source UNK Name Value Range Interpretation Code Description Data Source(s) Oxygen saturation in Arterial blood by Pulse oximetry 98 % 98 % MEDENT ([facility]) Body mass index (BMI) [Ratio] 21.9 kg/m2 21.9 k g/m2 [facility] ([facility]) Body weight 136.50 [lb_av] 136.50 [lb_av] MEDEN T ([facility]) Body height 66.2 [in_i] 66.2 [in_i] [facility] ([facility] ) 5'6.20" Heart rate 101 /min 101 /min [facility] ([facility] ) Diastolic blood pressure 98 mm[Hg] 98 mm[Hg] [facility] ([facility]) Systolic blood pressure 142 mm[Hg] 142 mm[Hg] M EDENT ([facility]) Oxygen saturation in Arterial blood by Pulse oximetry 99 % 99 % [facility] ([facility] ) Body mass index (BMI) [Ratio] 21.7 kg/m2 21.7 k g/m2 [facility] ([facility]) Body weight 135.50 [lb_av] 135.50 [lb_av] MEDEN T ([facility] ) Body height 66.2 [in_i] 66.2 [in_i] MED[facility] ([facility]) 5'6.20" Heart rate 92 /min 92 /min [facility] ([facility]) Diastolic blood pressure 80 mm[Hg] 80 mm[Hg] [facility] ([facility] ) Systolic blood pressure 124 mm[Hg] 124 mm[Hg] M EDENT ([facility] ) Body weight 59.422 kg 59.422 kg MEDENT ([facility], ) Body mass index (BMI) [Ratio] 21.1 kg/m2 21.1 k g/m2 MED[facility] ([facility], ) Body weight 131.00 [lb_av] 131.00 [lb_av] MEDEN T ([facility], ) Body height 66 [in_i] 66 [in_i] MED[facility] ([facility], ) 5'6" Diastolic blood pressure 82 mm[Hg] 82 mm[Hg] [facility] ([facility], ) Systolic blood pressure 124 mm[Hg] 124 mm[Hg] Leyla HALLMAN ([facility], ) ID Date Data Source [id number] 08/26/2020 04:16:21 PM [facility] Name Value Range Interpretation Code Description Data Source(s) WEIGHT RECORDED 132 lb 132 lb [facility] Body height Measured 66 in 66 in [facility]
--- OUTSIDE RECORDS SUMMARY | 2020-10-01 23:04 | CCD | Summary of Care ---
Author Author [facility] Organization [facility] Address Unknown Phone Unavailable Care Team Providers Care Flying Ii Instructor Name Role Phone Pamela Campo NP PCP Reason for Referral * Diagnostic Radiology (Routine) Referred By Contact Referred To Contact Status Reason Specialty Diagnoses / Procedures Pamela Campo NP [address] [place] [address] Open Radiology Diagnoses Breast cancer screening by mammogram P rocedures Mammo Digital Screen Bilateral Reason for Visit * Diagnostic Radiology (Routine) Referred By Contact Referred To Contact Status Reason Specialty Diagnoses / Procedures Pamela Campo NP [address] [place] [address] Open Radiology Diagnoses Breast cancer screening by mammogram P rocedures Mammo Digital Screen Bilateral Encounter Details Care Team Description Date Type Department Breast cancer screening by huma chin 08/19/2020 [facility] Mammography Encounter Radiology [address] [place] [address] Allergies Not on Filedocumented as of this encounter (statuses as of 08/20/2020) Medications Not on filedocumented as of this encounter (statuses as of 08/20/2020) Active Problems Not on filedocumented as of this encounter (statuses as of 08/20/2020) Social History Date Tobacco Use Types Packs/Day Years Used Never Assessed Sex Assigned at Date Recorded Not on file Date Recorded COVID-19 Exposure Response 08/19/2020 3:37 PM EST In the last month, have you been in contact with No / Unsure someone who was confirmed or suspected to have Coronavirus / COVID-19? documented as of this encounter Last Filed Vital Signs Reading Time Taken Comments Vital Sign - - Blood Pressure - - Pulse - - Temperature - - Respiratory Rate - - Oxygen Saturation - - Inhaled Oxygen Concentration 59.9 kg (132 lb) 08/19/2020 3:50 PM EST Weight 167.6 cm (5' 6") 08/19/2020 3:50 PM EST Height 21.31 08/19/2020 3:50 PM EST Body Mass Index documented in this encounter Plan of Treatment Date/Time Name Type Priority Associated Diag noses 08/19/2020 3:50 PM EST Mammo Digital Screen Imaging Routine Breast ca ncer screening Bilateral by mammogram Order Schedule Name Type Priority Associated Diag noses As Needed for 1 Occurrences starting until 08/19/2020 Mammo Digital Screen Imaging Routine Breast ca ncer screening Bilateral by mammogram Health Maintenance Due Date Last Done Comments MMR Vaccines (1 of - 1969 Standard series) Varicella Vaccines (1 of 1969 2 - 2-dose childhood series) DTaP,Tdap,and Td Vaccines 1975 (1 - Tdap) HIV Screening 1981 Cervical Cancer Screening 1989 5 years Breast Cancer Screening 2 2018 years Colon Cancer Screening 10 2018 yrs Influenza Vaccine 06/20/2020 Pneumococcal Vaccine: 65+ 2033 Years (1 of 1 - PPSV23) Hepatitis B Vaccines Aged Out 04/02/2017 No longer eligible based on patient's age to complete this topic HIB Vaccines Aged Out No longer eligible based on patient's age to complete this topic Hepatitis A Vaccines Aged Out No longer eligibl e based on patient's age to complete this topic IPV Vaccines Aged Out No longer eligible based on patient's age to complete this topic Pneumococcal Vaccine: Aged Out No longer eligib le based on patient's age to Pediatrics (0 to 5 Years) complete this topic and At-Risk Patients (6 to 64 Years) documented as of this encounter Results Not on filedocumented in this encounter Visit Diagnoses Diagnosis Breast cancer screening by mammogram documented in this encounter
--- OUTSIDE RECORDS SUMMARY | 2020-10-01 23:04 | CCD | Continuity of Care Document ---
Author Author Yodit [facility] PRESS[employer] STEAMER TENDER Organization Unknown Address [address] [place] [id number] Phone [phone] Care Team Providers Care Felt Puller Name Role Phone Pamela Campo PONY RIDE OPERATOR [employer] Problems Active Problems Provider Date Dominant nodule of thyroid Frida Niño MD Onset: 2019 Acute hepatitis C Onset: 08/03/2019 Melanocytic nevus of upper limb Onset: 0 02/27/2020 Nicotine dependence Onset: 08/03/2019 Screening colonoscopy Onset: 08/03/2019 Social History Type Date Description Comments Sex Unknown ETOH Use Occasionally consumes alcohol so cially Tobacco Use Start: Unknown Patient is a current smoker, smo kes every day approx 1 pack a day Smoking Status Reviewed: 06/19/20 Patient is a current smoker, smokes every day approx 1 pack a day Allergies, Adverse Reactions, Alerts Description No Known Drug Allergies Medications Active Medications SIG Qnty Indications Ordering Provide r Date Dicyclomine HCL 20mg Tablets 1 po qid prn Unknown Immunizations Description No Information Available Vital Signs Date Vital Result Comment 06/19/2020 11:51am BP Systolic 142 mmHg BP Diastolic 98 mmHg Heart Rate 101 /min Height 66.2 inches 5'6.20" Weight 136.50 lb BMI (Body Mass Index) 21.9 kg/m2 O2 % BldC Oximetry 98 % 06/03/2020 12:57pm BP Systolic 124 mmHg BP Diastolic 80 mmHg Heart Rate 92 /min Height 66.2 inches 5'6.20" Weight 135.50 lb BMI (Body Mass Index) 21.7 kg/m2 O2 % BldC Oximetry 99 % Results Test Acquired Date Facility Test Result H/L Range Note Laboratory test finding 06/03/2020 [facility] [address] [place] [address] [phone] Non Director Of Retail Marketing/Cytology Req For Servi (SEE NOTE) 1 1 SPECIMEN: FNA Rig ht lobe thyroid Specimen received in Cytolyt SPECIMEN ADEQUACY: Satisfactory for evaluation CATEGORIZATION: Benign DESCRIPTIONS: Small groups of follicular cells noted in a background of scattered lymphocytes, rare macrophages, and blood elements. COMMENTS: 06/04/2020 - 916 Signed KEY VICTOR(ASCP) 06/04/2020916 (Prelim) Signed VIOLETA MAST MD 06/04/2020 1035 Procedures Date Code Description Status 06/03/2020 00369 Fine Needle Aspiration Biopsy In lcd Ultrasound Guidance Completed Medical Devices Description No Information Available Encounters Type Date Location Provider Dx Diagnosis Office Visit 06/19/2020 11:45a DR. Frida Carlton NP E0 4.1 Nontoxic single thyroid nodule Office Visit 06/03/2020 1:00p DR. Frida Niño MD E 04.1 Nontoxic single thyroid nodule Assessments Date Code Description Provider 06/19/2020 E04.1 Nontoxic single thyroid nodule Darvin Carlton NP 06/03/2020 E04.1 Nontoxic single thyroid nodule Ray Niño MD Plan of Treatment 06/19/2020 - Della Carlton NP* E04.1 Nontoxic single thyroid nodule* Comments: * Dominant mass in the right lobe of the thyroid.left lobe is very small and normal appearing.Agreed to in office U/S guided biopsy. In office FNA performed by Dr Niño- 06/03/2020- right lobe- benign- small groups of follicular cells notes in a background of scattered lymphocytes, rare macrophages and blood elements Discussed options with pt- she would like to consider surgical evaluationWill refer to Dr. Mariano. Will have pt RTO 1 year if no surgery performed. * Referral:* Rashmi Mariano MD, Surgery,General * Follow up:* 1 year CBF U/S at f/u Functional Status Description No Information Available Mental Status Description No Information Available Referrals Refer to Reason for Referral Status Appt Date Rashmi Mariano MD large 6cm right thyroid nodule- pathology benig n. Created [address] [place] [address] [address] [place] [address] [phone]
[2020-10-01] MEDS ORDERED: KETOROLAC 30 MG/ML 1ML VIAL IV ONE (23:45)
[2020-10-01 23:47] LABS: BASO # 0.1 10^3/uL (0.0-0.2); BASO % 0.8 % (0.0-1.0); EOS # 0.1 10^3/uL (0.0-0.5); EOS % 1.4 % (0.0-3.0); HEMATOCRIT 35.5 % (36.0-47.0); HEMOGLOBIN 11.9 g/dl (12.0-15.5); LYMPH # 2.4 10^3/uL (1.5-5.0); LYMPH % 37.2 % (24.0-44.0); MEAN CORPUSCULAR HEMOGLOBIN 33.6 pg (27.0-33.0); MEAN CORPUSCULAR HGB CONC 33.5 g/dl (32.0-36.5); MEAN CORPUSCULAR VOLUME 100.3 fl (80.0-96.0); MONO # 0.5 10^3/uL (0.0-0.8); NEUTROPHILS # 3.4 10^3/uL (1.5-8.5); PLATELET COUNT, AUTOMATED 295 10^3/uL (150-450); RED BLOOD COUNT 3.54 10^6/uL (4.00-5.40); WHITE BLOOD COUNT 6.5 10^3/uL (4.0-10.0)
[2020-10-02 00:22] LABS: BLOOD UREA NITROGEN 18 MG/DL (7-18); CARBON DIOXIDE LEVEL 30 MEQ/L (21-32); CHLORIDE LEVEL 107 MEQ/L (98-107); CK-MB VALUE MASS < 1.0 NG/ML (<3.6); CPK CREATINE PHOSPHOKINASE 68 U/L (26-192); ETHYL ALCOHOL (ETHANOL) 0.172 % (0.000-0.010); GLOMERULAR FILTRATION RATE > 60.0 (>51); GLUCOSE, FASTING 114 MG/DL (70-100); MB/CK RELATIVE INDEX 1.47 (< OR =4); NT-PRO BNP 33 PG/ML (<125); POTASSIUM SERUM 4.3 MEQ/L (3.5-5.1); SODIUM LEVEL 141 MEQ/L (136-145); TROPONIN I < 0.02 NG/ML (< 0.10)
[2020-10-02 00:27] LABS: RSV AMPLIFICATION NEGATIVE (NEGATIVE)
--- OUTSIDE RECORDS SUMMARY | 2020-10-02 00:28 | CCD ---
Author Author [facility] Organization [facility] Address Unknown Phone Unavailable Care Team Providers Care Water Inspector Name Role Phone Alber, A Pamela PYTHON WEB DEVELOPER Unavailable Unavailable Alber, A Pamela PYTHON WEB DEVELOPER Unavailable Unavailable Alber, A Pamela PYTHON WEB DEVELOPER Unavailable Unavailable Alber, A Pamela PYTHON WEB DEVELOPER Unavailable Unavailable Del Rio, A Pamela PYTHON WEB DEVELOPER Unavailable Unavailable Del Rio, A Pamela PYTHON WEB DEVELOPER Unavailable Unavailable Del Rio, A Pamela PYTHON WEB DEVELOPER Unavailable Unavailable Alber, A Pamela PYTHON WEB DEVELOPER Unavailable Unavailable Alber, A Pamela PYTHON WEB DEVELOPER Unavailable Unavailable Alber, A Pamela PYTHON WEB DEVELOPER Unavailable Unavailable Alber, A Pamela PYTHON WEB DEVELOPER Unavailable Unavailable Del Rio, A Pamela PYTHON WEB DEVELOPER Unavailable Unavailable Alber, A Pamela PYTHON WEB DEVELOPER Unavailable Unavailable Alber, A Pamela PYTHON WEB DEVELOPER Unavailable Unavailable Alber, A Pamela PYTHON WEB DEVELOPER Unavailable Unavailable Alber, A Pamela PYTHON WEB DEVELOPER Unavailable Unavailable Alber, A Pamela PYTHON WEB DEVELOPER Unavailable Unavailable Alber, A Pamela PYTHON WEB DEVELOPER Unavailable Unavailable Alber, A Pamela PYTHON WEB DEVELOPER Unavailable Unavailable Alber, A Pamela PYTHON WEB DEVELOPER Unavailable Unavailable Alber, A Pamela PYTHON WEB DEVELOPER Unavailable Unavailable Alber, A Pamela PYTHON WEB DEVELOPER Unavailable Unavailable Alber, A Pamela PYTHON WEB DEVELOPER Unavailable Unavailable Alber, A Pamela PYTHON WEB DEVELOPER Unavailable Unavailable Alber, A Pamela PYTHON WEB DEVELOPER Unavailable Unavailable Alber, A Pamela PYTHON WEB DEVELOPER Unavailable Unavailable Alber, A Pamela PYTHON WEB DEVELOPER Unavailable Unavailable Alber, A Pamela PYTHON WEB DEVELOPER Unavailable Unavailable Alber, A Pamela PYTHON WEB DEVELOPER Unavailable Unavailable Alber, A Pamela PYTHON WEB DEVELOPER Unavailable Unavailable Alber, A Pamela PYTHON WEB DEVELOPER Unavailable Unavailable Del Rio, A Pamela PYTHON WEB DEVELOPER Unavailable Unavailable Del Rio, A Pamela PYTHON WEB DEVELOPER Unavailable Unavailable Del Rio, A Pamela PYTHON WEB DEVELOPER Unavailable Unavailable Del Rio, A Pamela PYTHON WEB DEVELOPER Unavailable Unavailable Del Rio, A Pamela PYTHON WEB DEVELOPER Unavailable Unavailable Del Rio, A Pamela PYTHON WEB DEVELOPER Unavailable Unavailable Del Rio, A Pamela PYTHON WEB DEVELOPER Unavailable Unavailable Del Rio, A Pamela PYTHON WEB DEVELOPER Unavailable Unavailable Del Rio, A Pamela PYTHON WEB DEVELOPER Unavailable Unavailable Del Rio, A Pamela PYTHON WEB DEVELOPER Unavailable Unavailable Del Rio, A Pamela PYTHON WEB DEVELOPER Unavailable Unavailable Del Rio, A Pamela PYTHON WEB DEVELOPER Unavailable Unavailable Del Rio, A Pamela PYTHON WEB DEVELOPER Unavailable Unavailable Del Rio, A Pamela PYTHON WEB DEVELOPER Unavailable Unavailable Del Rio, A Pamela PYTHON WEB DEVELOPER Unavailable Unavailable Del Rio, A Pamela PYTHON WEB DEVELOPER Unavailable Unavailable Del Rio, A Pamela PYTHON WEB DEVELOPER Unavailable Unavailable Del Rio, A Pamela PYTHON WEB DEVELOPER Unavailable Unavailable Del Rio, A Pamela PYTHON WEB DEVELOPER Unavailable Unavailable Del Rio, A Pamela PYTHON WEB DEVELOPER Unavailable Unavailable Del Rio, A Pamela PYTHON WEB DEVELOPER Unavailable Unavailable Del Rio, A Pamela PYTHON WEB DEVELOPER Unavailable Unavailable Del Rio, A Pamela PYTHON WEB DEVELOPER Unavailable Unavailable Fish, Audrey Galicia MD Unavailable [...] Unavailable Audrey Niño MD Unavailable Unavailable Audrey Nioñ MD Unavailable Unavailable Audrey Niño MD Unavailable [...] Frida ESPINOZA Unavailable Unavailable Fish, B Frida SEPINOZA Unavailable Unavailable Fish, B Frida ESPINOZA Unavailable [...] Frida ESPINOZA Unavailable Unavailable COOK, B IRENE AMALGAMATOR Unavailable Unavailable COOK, B IRENE AMALGAMATOR Unavailable Unavailable COOK, B IRENE AMALGAMATOR Unavailable Unavailable COOK, B IRENE AMALGAMATOR Unavailable Unavailable COOK, B IRENE AMALGAMATOR Unavailable Unavailable COOK, B IRENE AMALGAMATOR Unavailable Unavailable COOK, B IRENE AMALGAMATOR Unavailable Unavailable COOK, B IRENE AMALGAMATOR Unavailable Unavailable COOK, B IRENE AMALGAMATOR Unavailable Unavailable COOK, B IRENE AMALGAMATOR Unavailable Unavailable COOK, B IRENE AMALGAMATOR Unavailable Unavailable COOK, B IRENE AMALGAMATOR Unavailable Unavailable COOK, B IRENE AMALGAMATOR Unavailable Unavailable COOK, B IRENE AMALGAMATOR Unavailable Unavailable COOK, B IRENE AMALGAMATOR Unavailable Unavailable COOK, B IRENE AMALGAMATOR Unavailable Unavailable COOK, B IRENE AMALGAMATOR Unavailable Unavailable COOK, B IRENE AMALGAMATOR Unavailable Unavailable COOK, B IRENE AMALGAMATOR Unavailable Unavailable COOK, B IRENE AMALGAMATOR Unavailable Unavailable COOK, B IRENE AMALGAMATOR Unavailable Unavailable COOK, B IRENE AMALGAMATOR Unavailable Unavailable COOK, B IRENE AMALGAMATOR Unavailable Unavailable COOK, B IRENE AMALGAMATOR Unavailable Unavailable COOK, B IRENE AMALGAMATOR Unavailable Unavailable COOK, B IRENE AMALGAMATOR Unavailable Unavailable COOK, B IRENE AMALGAMATOR Unavailable Unavailable COOK, B IRENE AMALGAMATOR Unavailable Unavailable COOK, B IRENE AMALGAMATOR Unavailable Unavailable COOK, B IRENE AMALGAMATOR Unavailable Unavailable COOK, B IRENE AMALGAMATOR Unavailable Unavailable COOK, B IRENE AMALGAMATOR Unavailable Unavailable COOK, B IRENE AMALGAMATOR Unavailable Unavailable COOK, B IRENE AMALGAMATOR Unavailable Unavailable COOK, B IRENE AMALGAMATOR Unavailable Unavailable COOK, B IRENE AMALGAMATOR Unavailable Unavailable COOK, B IRENE AMALGAMATOR Unavailable Unavailable COOK, B IRENE AMALGAMATOR Unavailable Unavailable COOK, B IRENE AMALGAMATOR Unavailable Unavailable COOK, B IRENE AMALGAMATOR Unavailable Unavailable COOK, B IRENE AMALGAMATOR Unavailable Unavailable COOK, B IRENE AMALGAMATOR Unavailable Unavailable COOK, B IRENE AMALGAMATOR Unavailable Unavailable COOK, B IRENE AMALGAMATOR Unavailable Unavailable COOK, B IRENE AMALGAMATOR Unavailable Unavailable COOK, B IRENE AMALGAMATOR Unavailable Unavailable COOK, B IRENE AMALGAMATOR Unavailable Unavailable COOK, B IRENE AMALGAMATOR Unavailable Unavailable COOK, B IRENE AMALGAMATOR Unavailable Unavailable COOK, B IRENE AMALGAMATOR Unavailable Unavailable COOK, B IRENE AMALGAMATOR Unavailable Unavailable COOK, B IRENE AMALGAMATOR Unavailable Unavailable COOK, B IRENE AMALGAMATOR Unavailable Unavailable COOK, B IRENE AMALGAMATOR Unavailable Unavailable COOK, B IRENE AMALGAMATOR Unavailable Unavailable COOK, B IRENE AMALGAMATOR Unavailable Unavailable COOK, B IRENE AMALGAMATOR Unavailable Unavailable COOK, B IRENE AMALGAMATOR Unavailable Unavailable COOK, B IRENE AMALGAMATOR Unavailable Unavailable COOK, B IRENE AMALGAMATOR Unavailable Unavailable COOK, B IRENE AMALGAMATOR Unavailable Unavailable COOK, B IRENE AMALGAMATOR Unavailable Unavailable COOK, B IRENE AMALGAMATOR Unavailable Unavailable ROCCO, SACHA ESPINOZA Unavailable Unavailable REINDL, SACHA ESPINOZA Unavailable Unavailable REINDL, SCAHA ESPINOZA Unavailable Unavailable REINDL, SACHA ESPINOZA Unavailable [...] REINDL, SACHA MD Unavailable Unavailable Pamela Campo PYTHON WEB DEVELOPER Unavailable Unavailable Re-disclosure Warning The records that [...] is protected by Article 27-F of the [facility] Public Health law. If you continue you may have access to information: Regarding HIV / AIDS; Provided by facilities licensed or operated by the [facility] Office of Mental Health; or Provided by the [facility] Office for People With Developmental Disabilities. If such information is present, then the following [facility] mandated warning applies: This information has been [...] law may result in a fine or custodial sentence or both. A general authorization for the release of medical or other information is NOT sufficient authorization for further disc losure. Encounters Encounter Providers Location Date Indications Data Source(s ) Outpatient Referrer: Pamela ISABEL 0 12:00:00 AM EST Encounter for screening mammogram for malignant neoplasm of breast [facility] Encounter for screening mammogram for ma lignant neoplasm of breast Outpatient Referrer: Pamela ISABEL 08/19/2020 12:0 0:00 AM EST [facility] Outpatient Attender: Pamela ISABEL FP 07/04/2020 01:4 2:00 PM EDT [facility] Outpatient Attender: IRENE HSIEH NP Physical Therapy 06/19/2020 1 1:45:00 AM EDT [facility] ([facility]) Outpatient Attender: Pamela ISABEL FP 06/14/2020 04:1 0:00 PM EDT [facility] Outpatient Attender: Pamela ISABEL FP 06/11/2020 07:5 3:01 PM EDT [facility] Outpatient Attender: MAAME ISABEL FP 06/08/2020 09:42:00 A M EDT [facility] Outpatient Attender: MAAME ISABEL FP 06/08/2020 12:02:21 A M EDT [facility] Outpatient Attender: MAAME ISABEL FP 06/07/2020 07:40:01 A M EDT [facility] Outpatient Attender: Frida Niño MD Physical Therapy 06/03 01:00:00 PM EDT [facility] ([facility]) Outpatient Referrer: Pamela ISABEL 05/30/2020 12:0 0:00 AM EDT [facility] Outpatient Attender: Pamela ISABEL FP 05/21/2020 01:3 5:00 PM EDT [facility] Outpatient Attender: MAAME ISABEL FP 05/21/2020 07:27:00 A M EDT [facility] Outpatient Attender: MAAME ISABEL FP 05/20/2020 04:08:01 P M EDT [facility] Outpatient Attender: Pamela ISABEL FP 05/20/2020 12:3 8:00 AM EDT [facility] Outpatient Attender: MAAME ISABEL FP 05/20/2020 12:37:59 A M EDT [facility] Outpatient Attender: Pamela ISABEL FP 05/20/2020 12:3 7:01 AM EDT [facility] Outpatient Attender: MAAME ISABEL FP 05/20/2020 12:36:59 A M EDT [facility] Outpatient Attender: MAAME RETANAP FP 05/10/2020 11:40:00 A M EDT [facility] Outpatient Attender: Pamela RETANAP FP 04/28/2020 11:5 4:01 PM EDT [facility] Outpatient Attender: Pamela RETANAP FP 04/22/2020 03:1 5:00 PM EDT [facility] 04/18/2020 12:00:00 AM EDT [facility] Outpatient Attender: MAAME RETANAP FP 04/09/2020 11:03:00 A M EDT [facility] Outpatient Attender: MAAME RETANAP FP 04/08/2020 11:01:01 A M EDT [facility] Outpatient Attender: MAAME RETANAP FP 03/26/2020 12:28:00 P M EDT [facility] Outpatient Attender: Pamela RETANAP FP 03/17/2020 03:1 9:03 PM EDT [facility] Outpatient Attender: MAAME RETANAP FP 03/12/2020 05:58:01 P M EDT [facility] Outpatient Attender: MAAME RETANAP FP 03/12/2020 04:38:05 P M EDT [facility] Outpatient Attender: MAAME RETANAP FP 03/09/2020 09:48:02 P M EDT [facility] Outpatient Attender: Pamela RETANAP FP 03/09/2020 09:4 8:01 PM EDT [facility] Outpatient Attender: MAAME RETANAP FP 03/09/2020 09:47:02 P M EDT [facility] Outpatient Attender: Pamela RETANAP FP 03/09/2020 09:4 7:01 PM EDT [facility] Outpatient Attender: Pamela RETANAP FP 03/01/2020 10:1 1:00 AM EDT [facility] Outpatient Attender: MAAME RETANAP FP 02/27/2020 07:59:31 P M EDT [facility] Outpatient Attender: MAAME RETANAP FP 02/27/2020 05:36:00 P M EDT [facility] Outpatient Attender: MAAME RETANAP FP 02/27/2020 04:39:00 P M EDT [facility] Outpatient Attender: MAAME Campo [facility] 02/27/2020 04:38:00 P M EDT [facility] Outpatient Attender: MAAME Campo [facility] 02/27/2020 12:09:00 P M EDT [facility] Outpatient Attender: MAAME Campo [facility] 02/17/2020 12:18:18 A M EDT [facility] Outpatient Attender: SACHA Carrion/Buck/Jeff/Bindu lópez 09/29/2019 02:15:00 PM EST [facility] ([facility] Outpatient Attender: PYTHON WEB DEVELOPER Alber [facility] 08/07/2019 12:28:01 A M EST [facility] Outpatient Attender: Pamela Campo [facility] 08/07/2019 12:2 6:59 AM [facility] Outpatient Attender: PYTHON WEB DEVELOPER Alber [facility] 08/04/2019 09:01:03 P M [facility] Outpatient Attender: MAAME Alber [facility] 08/04/2019 03:58:00 P M [facility] Outpatient Attender: MAAME Campo [facility] 08/04/2019 03:57:00 P M [facility] Outpatient Attender: MAAME Alber [facility] 08/04/2019 03:56:01 P M [facility] Outpatient Attender: MAAME Campo [facility] 08/03/2019 09:01:04 P M [facility] Outpatient Attender: MAAME Alber [facility] 08/03/2019 05:50:02 P M [facility] Outpatient Attender: MAAME Alber [facility] 08/03/2019 03:59:00 P M [facility] Outpatient Attender: PYTHON WEB DEVELOPER Alber [facility] 08/03/2019 03:58:00 P M [facility] Medications Medication Brand Name Start Date Product [...] 09/29/2019 12:00:00 AM EST ORAL active [facility] ([facility], ) POLYETHYLENE GLYCOL 3350 105 MG/ML / Pot assium Chloride 0.24450 MEQ/ML / Sodium Bicarbonate 0.017 MEQ/ML / Sodium Chloride 0.0479 MEQ/ML Oral Solution [TriLyte] Trilyte 09/29/2019 12:00:00 AM EST active [facility] ([facility], ) No Active Medications 09/25/2019 12:00:00 AM EST completed [facility] ([facility], ) Insurance Providers Payer name Policy type / Coverage type Policy ID Covered constitution party ID Covered constitution party's relationship to leger Policy Leger Plan Information [facility] COMM[facility]AN [facility] [id number] SP [id number] MEDICAID M [id number] Self [id number] [facility] I [id number] Self [id number] [facility] O [id number] S [id number] Medicaid S [id number] S [id number] Managed Care [facility] Community Plan P [id number] S [id number] Medicaid S [id number] S [id number] Managed Care [facility] Community Plan P [id number] S [id number] Self Pay P UNAVAILABLE S U[facility]VAILA BLE [facility] [id number] SP [id number] [facility] [id number] SP [id number] MEDICAID [id number] SP [id number] SELF PAY UNAVAILABLE UNAVAILA BLE Problems, Conditions, and Diagnoses Code Display Name Description Problem Type Effective Dates Data Source(s) 209825856 Dominant nodule of thyroid Dominant nodule of thyroid Problem 06/03/2020 12:00:00 AM EDT [facility] ([facility]) 793.99 Imaging of thyroid gland abnormal Imaging of thyroid g land abnormal 05/20/2020 04:07:03 PM EDT [facility] V76.12 Encounter for screening mammogram for ma lignant neoplasm of breast Encounter for screening mammogram for malignant neoplasm of breast 03/26/2020 12:27:55 PM EDT [facility] 380.4 Impacted cerumen, bilateral Impacted cerumen, bilatera l 03/12/2020 05:56:43 PM EDT [facility] [id number] Urinary tract infection, site not specif ied Urinary tract infection, site not specified 03/12/2020 05:56:43 PM EDT [facility] V65.8 Person consulting for explanation of exa mination or test findings Person consulting for explanation of examination or test findings 03/12/2020 05:56:43 PM EDT [facility] D22.60 Melanocytic nevi of unspecified upper li mb, including shoulder Melanocytic nevi of unspecified upper limb, including shoulder 02/27/2020 05:34:02 PM EDT [facility] 784.2 Localized swelling, mass and lump, neck Localized swelling, mass and lump, neck 02/27/2020 05:34:02 PM EDT [facility] [id number] Melanocytic nevus of upper limb Melanocytic nevu s of upper limb Problem 02/27/2020 12:00:00 AM EDT [facility] ([facility]) V05.9 Vaccination Vaccination 08/07/2019 12:26:39 AM EST [facility] V04.81 Needs influenza immunization Needs influenza immunizat ion 08/03/2019 05:49:23 PM [facility] 070.51 Hepatits C Hepatits C 08/03/2019 05:49:23 PM ES T [facility] V70.0 Health Screening Health Screening 08/03/2019 05 :49:23 PM [facility] V76.51 Encounter for screening for malignant ne oplasm of colon Encounter for screening for malignant neoplasm of colon 08/03/2019 05:49:2 3 PM [facility] [id number] Nicotine dependence, unspecified, uncomp licated Nicotine dependence, unspecified, uncomplicated 08/03/2019 05:49:23 PM [facility] Z12.31 Encounter for screening mammogram for ma lignant neoplasm of breast Encounter for screening mammogram for malignant neoplasm of breast Diagnosis 08/19/2020 03:15:00 PM [facility] Surgeries/Procedures Procedure Description Date Indications Data Source(s) Fine Needle Aspiration Biopsy Inlcd Ultrasound Guidance 06/03/2020 12:00:00 AM EDT [facility] ([facility]) Results ID Date Data Source [id number] 08/26/2020 04:16:21 PM [facility] MAMMO DIGITAL SCREENING BILATERAL [id number] INAL RESULTInterpreted by:Darshan Sanchez MDBILATERAL DIGITAL MAMMOGRAM [...] rce(s) Supporting Document(s) ID Date Data Source [id number] 06/03/2020 05:26:00 AM EDT [facility] ([facility]) Name Value Range Interpretation Code Description Data Gail rce(s) Supporting Document(s) Microscopic observation [Identifier] in Unspecified specimen by Non- gynecological cytology method Laboratory test result [facility] ([facility]) SPECIMEN: FNA Right lobe thyr oid Specimen received in Cytolyt SPECIMEN ADEQUACY: Satisfactory for evaluation CATEGORIZATION: Benign DESCRIPTIONS: Small groups of follicular cells noted in a background of scattered lymphocytes, rare macrophages, and blood elements. COMMENTS: 06/04/2020 - 916 Signed KEY VICTOR(ASCP) 06/04/2020 09 (Prelim) Signed VIOLETA MAST MD 06/04/2020 1035 ID Date Data Source [id number] 05/23/2020 12:00:00 PM EDT [facility] Name Value Range Interpretation Code Description Data Gail rce(s) Supporting Document(s) SARS coronavirus 2 RNA [facility] This lab was ordered by [facility] and reported by [facility]. ID Date Data Source [id number] 04/09/2020 11:34:42 AM EDT [facility] In-House Urine TestsDate/Time Colle cted: April 09, 2020 11:35 AMTest Result Reference Range Normal ValueTanisha Duggan, April 09, 2020 11:35 AMAssessment & Plan Orders:[id number] Vst-Est Level I [CPT-55457] Name Value Range Interpretation Code Description Data Gail rce(s) Supporting Document(s) ID Date Data Source [id number] 04/09/2020 11:20:00 AM EDT [facility] Name Value Range Interpretation Code Description Data Gail rce(s) Supporting Document(s) APPEARANCE U TURBID CLEAR H [facility] SPEC GR URIN 1.017 1.002-1.035 N [facility] F [facility] UA COLOR VALERY YELLOW N [facility] ID Date Data Source [id number] 04/09/2020 11:20:00 AM EDT [facility] Name Value Range Interpretation Code Description Data Gail rce(s) Supporting Document(s) URINECULTRTN NO GROWTH N [facility] ID Date Data Source [id number] 03/12/2020 04:43:52 PM EDT [facility] Measurements & CalculationsHeight: 66 inches (5 ft. [...] barriers: nonePatient's Language used in visit: YesLanguage: urdu Screening, Brief Intervention, & Referral to Treatment [...] during this visit, including review of any hcga-skm-vxxtjiv medications, herbal therapies, and/or supplements.Allergy ReviewAllergy List [...] water daily.Urinary tract infection, site not specified (HFK13-O31.0) Assessment: Will treat for UTI and recheck urine with culture in 6 weeks. will refer to urologist if still positive for blood in urine. Instructions: We have sent a prescription to your pharmacy today. Please take medication as prescribed. Please report any major side effects.Impacted cerumen, bilateral (ICD-380.4) (AGL08-M47.23) Assessment: Instructions: Ear wax removed today via warm water flush. Please try to keep ear canal clean and dry. Please avoid the use of qtips. May use washcloth in shower daily, then dry with towels.Assessed:Nicotine dependence, unspecified, uncomplicated (XXU49-L84.200) Assessment: Instructions: Cigarette smoking is linked to [...] Known Allergies (updated 02/27/2020) Orders:Ear Wax Removal [CPT-87389] URINALYSIS [CPT-20312] Urine Culture & Sensitivity [CPT-99730] Adult - Ofc Vst, EST, Level IV [CPT-89740] Follow-Up Return to clinic: 3 months for follow up Clinical Visit Summary CompletedMedications:CIPRO 500 MG ORAL TABLET (CIPROFLOXACIN HCL) take one tablet by mouth twice daily x 5 days #10[Tablet] x 0 Route:ORAL Entered and Authorized by: Pamela ISABEL Method used: Electronically to [facility] (retail) [address] [place] [address] Fax: Note to Pharmacy: Route: ORAL; Indications: URINARY TRACT INFECTION, SITE NOT SPECIFIED RxID: [id number] signed by Pamela ISABEL on 03/17/2020 at 3:18 PM Name Value Range Interpretation Code Description Data Gail rce(s) Supporting Document(s) ID Date Data Source [id number] 02/28/2020 11:37:00 AM EDT [facility] Name Value Range Interpretation Code Description Data Gail rce(s) Supporting Document(s) APPEARANCE U CLOUDY CLEAR H [facility] SPEC GR URIN 1.017 1.002-1.035 N [facility] UA COLOR YELLOW YELLOW N [facility] Family [facility] ID Date Data Source [id number] 02/28/2020 11:33:00 AM EDT [facility] Name Value Range Interpretation Code Description Data Gail rce(s) Supporting Document(s) HCT 40.3 % 36.0-47.0 N [facility] HGB 13.6 g/dL 12.0-15.5 N [facility] MCH 33.7 G/DL pg 32.0-36.5 N [facility] MCHC 32.5 PG % 27.0-33.0 N [facility] PLATELETS 263 10 10*3/mm3 150-450 N [facility] RBC 4.18 10 10*6/mm3 4.00-5.40 N [facility] RDW 16.6 % 11.5-14.5 H [facility] WBC TOTAL 8.7 4.0-10.0 N [facility] ID Date Data Source [id number] 02/28/2020 11:33:00 AM EDT [facility] Name Value Range Interpretation Code Description Data Gail rce(s) Supporting Document(s) HGBA1C 5.3 % N [facility] ID Date Data Source [id number] 02/28/2020 11:33:00 AM EDT [facility] Name Value Range Interpretation Code Description Data Gail rce(s) Supporting Document(s) BG FASTING 86 mg/dL 70-100 N [facility] T4, FREE 0.78 ng/dL 0.76-1.46 N [facility] TSH 1.700 microintl units/mL 0.358-3.740 N [facility] VIT D25 TOT 21.8 ng/mL 30.0-100.0 L [facility] ID Date Data Source [id number] 02/27/2020 04:22:27 PM EDT [facility] Measurements & CalculationsHeight: 66 inches (5 ft. [...] not painful. HPI performed by: Pamela Campo [facility], February 27, 2020 4:59 PMTransitions of Care InboundProblem ReviewProblem List was reviewed and/or updated during this visit.Medication Reconciliation & ReviewMedication List was reviewed and/or updated during this visit, including review of any [id number] medications, herbal therapies, and/or supplements. Patient has [...] Comments: Having done on March 19 with moblie site Pap Smear/HPV TestingReviewed: Previous Comments: 3 [...] Localized swelling, mass and lump, neck (ICD-784.2) (UWA87-U51.1) Assessment: localized swelling to right neck. c/o increased discomfort. Present for over [address] scan for eval and treatneed to r/o mass / tumor Instructions: We have ordered a CT scan of your neck of your neck. We will contact you to set this upMelanocytic nevi of unspecified upper limb, including shoulder (ICD-216.6) (CEN11-T52.60) Assessment: Instructions: We have made a referral for you today. We will contact you to set this up.Assessed:Health Screening (ICD-V70.0) (BYM38-N96.9) Assessment: Instructions: Fasting labs done for you today. Please have labs done prior to your next visit. Please fast for 8-10 hours prior.Nicotine dependence, unspecified, uncomplicated (EKQ30-X09.200) Assessment: Patient states smoking about one pack [...] Known Allergies (updated 02/27/2020) Orders:COMP METABOLIC PANEL [CPT-71111] CBC W/DIFF [CPT-29427] HgBA1c [CPT-12980] LIPID PANEL [CPT- 28779] TSH [CPT-78265] T-4 free [CPT-90444] Vitamin D 250H Unspecified [CPT- 97135] URINALYSIS [CPT-41363] Dermatology Consult [CPT-82227] CT SOFT TISSUE NECK W/O &W/CONTRAST MATERIAL [CPT-44208] Adult - Ofc Vst, EST, Level IV [CPT- 58971] Follow-Up Return to clinic: 2-3 weeks for fillow up Clinical Visit Summary Completed Name Value Range Interpretation Code Description Data Gail rce(s) Supporting Document(s) ID Date Data Source [id number] 08/03/2019 04:20:17 PM [facility] Measurements & CalculationsHeight: 66 inches (5 ft. [...] / IM / Left DeltoidNDC / CVX: [id number] / 150Administered Date: 08/03/2019 17:51VFC Eligibility: Not VFC EligibleVIS Date: 05/04/2019VIS Given / VIS Given On: Yes / 08/03/2019Comments: Administered by: Lilian Harrison LPN Initial [...] or Preferred Language: EnglishFamily and Home Address: [address] [place] [address] What is your housing situation today? I have housing Are you worried about losing your housing? NoMoney and Resources What is the highest level of school that you have finished? high school graduate Employed? No Are you seeking work? No Insurance: Managed Care - [facility] Community PlanIn the past year, have you or any family members you live with been unable to get any of the following when it was really needed? Denies Insecurity: food, utilities, clothing, maternal child nurse, phone, legal servicesIn the past year, have [...] 2 nights in a row in a custodial, intermediate, shelter center or juvenile correctional facility? No Has [...] you a refugee? No (Country of origin: [place]) Do you feel physically and emotionally safe [...] concerns at this time.HPI performed by: Pamela Campo [facility], August 03, 2019 5:23 PMTransitions of Care InboundProblem ReviewProblem List was reviewed and/or updated during this visit.Medication Reconciliation & ReviewMedication List was reviewed and/or updated during this visit, including review of any kzzx-pkj-awclrcf medications, herbal therapies, and/or supplements. Patient has [...] to set this upNicotine dependence, unspecified, uncomplicated (QMA06-R69.200) Assessment: Instructions: Cigarette smoking is linked to many health concerns. Please try to quit smoking. Please let us know if you need additional assistance in doing so.Health Screening (ICD-V70.0) (UME53-E51.9) A ssessment: Instructions: We have ordered labs for you today. Please have blood work done one -2 weeks prior to your next visit. Please fast for 8-10 hours prior to having labs drawn.Hepatits C (ICD-070.51) (UJK73-W72.10) Assessment: Instructions: Please call to schedule an appointment with Dr Carroll for completion of your Hepatitis C treatment.Needs influenza immunization (ICD- V04.81) (KJD95-J66.3) Assessment: Instructions: You have had your flu [...] familyAllergies:No Known Allergies (updated 08/03/2019) Orders:Gastroenterology Consult [CPT-01826] COMP METABOLIC PANEL [CPT-20181] CBC W/DIFF [CPT-40770] HgBA1c [CPT-32130] LIPID PANEL [CPT-02158] TSH [CPT-91269] T- 4 free [CPT-20283] Vitamin D 250H Unspecified [CPT-74576] Administration of Influenza Virus Vaccine [CPT-G0008] 09865 - Immo Admin (under 19 yrs), 1st Toxo id [CPT-20440] FluLaval Quadrivalent, preservative free [CPT-43002] Adult - Ofc Vst, NEW, Level III [CPT-47770] Follow-Up Return to clinic: 3-4 weeks for follow up Clinical Visit Summary Completed Name Value Range Interpretation Code Description Data Gail rce(s) Supporting Document(s) Procedure Social History Code Duration Value Status Description Data Source(s ) Smoking 08/19/2020 12:00:00 AM EST Unknown if ever smoked comp leted Unknown if ever smoked [facility] Vital Signs ID Date Data Source UNK Name Value Range Interpretation Code Description Data Source(s) Oxygen saturation in Arterial blood by Pulse oximetry 98 % 98 % [facility] ([facility] ) Body mass index (BMI) [Ratio] 21.9 kg/m2 21.9 k g/m2 [facility] ([facility] ) Body weight 136.50 [lb_av] 136.50 [lb_av] MEDEN T ([facility] ) Body height 66.2 [in_i] 66.2 [in_i] [facility] ([facility] ) 5'6.20" Heart rate 101 /min 101 /min [facility] ([facility]) Diastolic blood pressure 98 mm[Hg] 98 mm[Hg] [facility] ([facility] ) Systolic blood pressure 142 mm[Hg] 142 mm[Hg] M ED[facility] ([facility]) Oxygen saturation in Arterial blood by Pulse oximetry 99 % 99 % [facility] ([facility]) Body mass index (BMI) [Ratio] 21.7 kg/m2 21.7 k g/m2 [facility] ([facility] ) Body weight 135.50 [lb_av] 135.50 [lb_av] [facility] T ([facility] ) Body height 66.2 [in_i] 66.2 [in_i] [facility] ([facility] ) 5'6.20" Heart rate 92 /min 92 /min [facility] ([facility] ) Diastolic blood pressure 80 mm[Hg] 80 mm[Hg] [facility] ([facility] ) Systolic blood pressure 124 mm[Hg] 124 mm[Hg] M [facility] ([facility]) Body weight 59.422 kg 59.422 kg [facility] ([facility], ) Body mass index (BMI) [Ratio] 21.1 kg/m2 21.1 k g/m2 [facility] Body weight 131.00 [lb_av] 131.00 [lb_av] [facility] T ([facility], ) Body height 66 [in_i] 66 [in_i] [facility] ([facility], ) 5'6" Diastolic blood pressure 82 mm[Hg] 82 mm[Hg] [facility] ([facility], ) Systolic blood pressure 124 mm[Hg] 124 mm[Hg] M ED[facility] ([facility], ) ID Date Data Source [id number] 08/26/2020 04:16:21 PM [facility] Name Value Range Interpretation Code Description Data Source(s) WEIGHT RECORDED 132 lb 132 lb [facility] Body height Measured 66 in 66 in [facility]
--- NOTE | 2020-10-02 00:42 | REPVR ---
PROCEDURE INFORMATION: Exam: XR Chest, 1 View Exam date and time: 10/01/2020 11:59 PM Age: 50 years old Clinical indication: Chest pain TECHNIQUE: Imaging protocol: XR of the chest Views: 1 view. COMPARISON: No relevant prior studies available. FINDINGS: Lungs: Unremarkable. No consolidation. No pulmonary edema. Pleural space: Unremarkable. No pleural effusion or pneumothorax is identified. Heart/Mediastinum: Unremarkable. No cardiomegaly. Bones/joints: There are old healed fracture deformities involving the right posterolateral 3rd, 4th, and 5th ribs. IMPRESSION: No acute findings. Electronically signed by: Chava Huber On 10/02/2020 00:43:22 AM
[2020-10-02] MEDS ORDERED: NAPR-837 PO (01:33)
[2020-10-02 01:45] VITALS: BP 132/70
--- NOTE | 2020-10-02 10:20 | ECGEPIP ---
[facility] - ED Test Date: 2020-10-01 Pat Name: GISELE PANDEY Department: Room: - Gender: Female English Instructor: SOLITARIO : 1970 Requested By: JUN Randhawa Order Number: [id number] Reading MD: Cliff Marcial Measurements Intervals Crescent Rate: 98 P: 73 ND: 173 QRS: 24 QRSD: 85 T: 41 QT: 334 QTc: 427 Interpretive Statements SINUS RHYTHM Comparison tracing not on file Electronically Signed on 10-02-2020 10:19:49 EST by Cliff Marcial
== END 2020-10-02 01:45 | disposition home or self-care (01) ==
LOC: M ED 22:57
DX: R07.89 Other chest pain (principal); F17.200 Nicotine dependence, unspecified, uncomplicated
CPT/HCPCS: 71045; 80048; 82550; 82553; 83880; 85025; 87631; 93005; 93041; 94760; 96374; 99285; G0480; J1885

== ENCOUNTER → 2020-10-17 | Outpatient (CLI) | payer OTHER ==
[~2020-10-17] MED LIST changes: +NAPR-837 PO
--- NOTE | 2020-10-17 18:29 | REP ---
INDICATION: ADDITIONAL VIEWS LT BREAST. Recent screening mammography was inconclusive for possible asymmetric density in the left retroareolar breast. Diagnostic imaging was recommended. COMPARISON: Comparison mammography is reviewed dated 19 August 2020 and in addition, prior mammography from January 25, 2017 and April 17, 2013 is available. TECHNIQUE: Magnified focal spot-compression CC, mL, and MLO views of the left breast are obtained. This mammogram was interpreted with the aid of an FDA-approved computer-aided detection system. FINDINGS: The possible asymmetric density area in the left breast seen on August 19, 2020 compresses await to normal appearing stromal elements on today's magnified focal spot-compression images. There are scattered benign calcifications. No mass lesion is seen. No architectural distortion or microcalcification is observed. Scattered fibroglandular densities are noted. . Targeted ultrasound: Targeted subareolar sonography of the left breast demonstrates a mildly dilated 4 mm per subareolar breast duct but no intraductal abnormality. No cyst or mass is observed. No acoustic shadowing is seen. IMPRESSION: BIRADS/ACR category 2 benign mammographic and sonographic findings. This patient's Tyrer-Cuzick lifetime breast cancer risk assessment score is 8.1%. RECOMMENDATION: Repeat screening mammography recommended 1 year (for women over 40). The patient letter being requested is M1. <Electronically signed by Brat Henriquez > 10/17/20 [id number]
== END ==
LOC: M WHC 14:02
PROVIDERS: ATTEND Nurse Practitioner Family
DX: R92.2 Inconclusive mammogram (principal)

== ENCOUNTER → 2021-03-12 | Outpatient (CLI) | payer OTHER ==
[2021-03-12 15:37] LABS: BASO # 0.1 10^3/uL (0.0-0.2); BASO % 0.9 % (0.0-1.0); EOS # 0.1 10^3/uL (0.0-0.5); EOS % 1.1 % (0.0-3.0); HEMATOCRIT 38.9 % (36.0-47.0); LYMPH # 1.3 10^3/uL (1.5-5.0); MEAN CORPUSCULAR HEMOGLOBIN 33.7 pg (27.0-33.0); MEAN CORPUSCULAR HGB CONC 33.4 g/dl (32.0-36.5); MEAN CORPUSCULAR VOLUME 100.8 fl (80.0-96.0); MONO # 0.4 10^3/uL (0.0-0.8); MONO % 5.9 % (2.0-8.0); NEUTROPHILS # 5.6 10^3/uL (1.5-8.5); NEUTROPHILS % 74.8 % (36.0-66.0); PLATELET COUNT, AUTOMATED 327 10^3/uL (150-450); RED BLOOD COUNT 3.86 10^6/uL (4.00-5.40); WHITE BLOOD COUNT 7.5 10^3/uL (4.0-10.0)
--- NOTE | 2021-03-12 15:45 | REP ---
INDICATION: ESSENTIAL (PRIMARY) HYPERTENSION. Pain in the right hip joint. COMPARISON: None. TECHNIQUE: AP view of the pelvis and AP and frogleg views of the right hip are obtained. FINDINGS: A right hip arthroplasty is noted in good position. There are old healed fracture of the superior and inferior pubic ramus on the right. There is a metallic screw across the SI joint on the right horizontally oriented in the upper sacrum. There is some diffuse osteopenia. Periarticular soft tissues are unremarkable. No bony destructive lesion is seen. IMPRESSION: Status post right hip arthroplasty in good position. Old posttraumatic deformity and postsurgical change right pelvis. <Electronically signed by Bart Henriquez > 03/12/21 [id number]
[2021-03-12 16:15] LABS: ALT/SGPT 110 U/L (12-78); BILIRUBIN,TOTAL 0.5 MG/DL (0.2-1.0); BLOOD UREA NITROGEN 14 MG/DL (7-18); CALCIUM LEVEL 9.2 MG/DL (8.5-10.1); CARBON DIOXIDE LEVEL 24 MEQ/L (21-32); CHLORIDE LEVEL 106 MEQ/L (98-107); CHOLESTEROL LEVEL 185 MG/DL (<200); CHOLESTEROL RISK RATIO 3.032 (<5); CREATININE FOR GFR 0.66 MG/DL (0.55-1.30); FERRITIN 206 NG/ML (8-252); FREE T4 0.54 NG/DL (0.76-1.46); GLOMERULAR FILTRATION RATE > 60.0 (>51); GLUCOSE, FASTING 107 MG/DL (70-100); HDL CHOLESTEROL 61 MG/DL (>40); IRON (FE) 229 UG/DL (50-170); NON-HDL-C 124 MG/DL; POTASSIUM SERUM 4.2 MEQ/L (3.5-5.1); SODIUM LEVEL 138 MEQ/L (136-145); TOTAL IRON BINDING CAPACITY 332 UG/DL (250-450); TOTAL PROTEIN 7.7 GM/DL (6.4-8.2); TRIGLYCERIDES LEVEL 551 MG/DL (<150)
[2021-03-12 16:16] LABS: TOTAL 25(OH) VITAMIN D 10.2 NG/ML (30.0-100.0); VITAMIN B12 LEVEL 608 PG/ML
[2021-03-12 16:28] LABS: FOLATE 5.1 NG/ML
== END ==
LOC: M LAB 14:02
PROVIDERS: ATTEND Nurse Practitioner Family
DX: I10 Essential (primary) hypertension (principal); F17.200 Nicotine dependence, unspecified, uncomplicated; G89.4 Chronic pain syndrome; M25.551 Pain in right hip; Z96.641 Presence of right artificial hip joint; M85.851 Other specified disorders of bone density and structure, right thigh

== ENCOUNTER → 2021-05-22 | Outpatient (CLI) | payer MEDICAID | LOC: M OUTALCOH 08:01 | PROVIDERS: ATTEND Psychiatry & Neurology Psychiatry | DX: Z13.39 Encounter for screening examination for other mental health and behavioral disorders (principal); F10.10 Alcohol abuse, uncomplicated ==

== ENCOUNTER 2021-06-17 11:00 | Outpatient (RCR) | payer MEDICAID | END 2021-06-19 | LOC: M OUTALCOH 11:00 | PROVIDERS: ATTEND Psychiatry & Neurology Psychiatry | DX: F14.20 Cocaine dependence, uncomplicated (principal); F10.20 Alcohol dependence, uncomplicated; F17.200 Nicotine dependence, unspecified, uncomplicated ==

== ENCOUNTER 2021-07-15 10:00 | Outpatient (RCR) | payer MEDICAID | END 2021-07-20 | LOC: M OUTALCOH 10:00 | PROVIDERS: ATTEND Psychiatry & Neurology Psychiatry | DX: F14.20 Cocaine dependence, uncomplicated (principal); F10.20 Alcohol dependence, uncomplicated; F17.200 Nicotine dependence, unspecified, uncomplicated ==

== ENCOUNTER 2021-08-11 14:00 | Outpatient (RCR) | payer MEDICAID | END 2021-08-19 | LOC: M OUTALCOH 14:00 | PROVIDERS: ATTEND Psychiatry & Neurology Psychiatry | DX: F14.20 Cocaine dependence, uncomplicated (principal); F10.20 Alcohol dependence, uncomplicated; F17.200 Nicotine dependence, unspecified, uncomplicated ==